=== PATIENT | female | born 1940 | race Caucasian/White ===

== ENCOUNTER 2016-10-25 11:07 | Day surgery (SDC) | payer OTHER ==
[~2016-10-25 11:07] MED LIST: ceFAZolin 2 GM/DEXTROSE 100 ML IV ONE
[2016-10-25] MEDS ORDERED: SODIUM BICARBONATE 10 MEQ/10 ML SYR IVP ONE (11:08)
[2016-10-25] MEDS ORDERED: LIDOCAINE 1% 30 ML SDV ONE (11:08)
[2016-10-25] MEDS ORDERED: BUPIVACAINE 0.5% 30 ML SDV ONE (11:08)
[2016-10-25] MEDS ORDERED: CEFAZOLIN 2 GM/DEXTROSE/100 ML BAG IV ONE (12:36)
[2016-10-25] MEDS ORDERED: LIDOCAINE 2% 5 ML SDV ONE (14:20)
[2016-10-25] MEDS ORDERED: fentaNYL 100 MCG/2 ML INJ ONE (14:20)
[2016-10-25] MEDS ORDERED: PROPOFOL 200 MG/20 ML VIAL ONE (14:20)
[2016-10-25] MEDS ORDERED: MIDAZOLAM 2 MG/2 ML VIAL ONE (14:22)
[2016-10-25] MEDS ORDERED: epHEDrine SULFATE 10 MG/ML SYR ONE (14:38)
[2016-10-25] MEDS ORDERED: DEXAMETHASONE 4 MG/ML VIAL ONE (14:39)
[2016-10-25] MEDS ORDERED: ONDANSETRON 4 MG/2 ML VIAL ONE (14:39)
--- NOTE | 2016-10-25 16:28 | DX ---
Portable Chest, 1610 History: Post port placement, pancreatic cancer Comparison: None Findings: A left chest wall implanted port is present with tip of its catheter in the right atrium. T here is no pneumothorax. Lungs are clear. There is no pleural fluid. Impression: Excellent port placement without pneumothorax. Results called to the PACU nurse at 1626 p.m.
--- NOTE | 2016-10-25 16:31 | GOP ---
[f rep st] OPERATIVE REPORT DATE OF OPERATION: 10/25/2016 SURGEON: Brad Walsh MD SENIOR COMPLIANCE ANALYST: None. ANESTHESIOLOGIST: Dr. Schuster PREOPERATIVE DIAGNOSIS: Pancreatic cancer. POSTOPERATIVE DIAGNOSIS: Pancreatic cancer. PROCEDURE PERFORMED: Left subclavian port with fluoroscopic guidance. FINDINGS: The patient was found to have good position of the catheter and good flow. DESCRIPTION OF PROCEDURE: Patient taken to the operating room, where she received a satisfactory gen eral laryngeal mask anesthesia by Dr. Schuster. She was placed in the supine position, and prepped and draped in the usual sterile fashion, then placed in Trendelenburg. Using 0.5% Marcaine local infiltration, a direct stick was made in the left subclavian vein. A guide wire was introduced, position was confirmed with fluoroscopy. Dilator was passed over that guidewire . Subcu pocket was made in the 2nd intercostal space and port tubing was passed from that pocket to the subclavian insertion site, trimmed to the appropriate length. Using fluoroscopic guidance, we int roduced the introducer sheath and dilator system into the right atrium. Good backflow was achieved. The catheter was flushed with heparin and saline. The port was secured to the fascia with 3-0 Vicry l, and the pocket was closed with 3-0 Vicryl for the subcu, 4-0 Prolene subcuticular stitch for the s kin. The entrance site was closed with a Prolene mattress suture. All layers were infiltrated with 0.5% Marcaine and the wounds were dressed. She tolerated the procedure well, taken to the recovery room in good condition. Copy requested to: [facility] /[id number]/MODL
--- NOTE | 2016-10-25 17:51 | DX ---
Intraoperative Fluoroscopy History: Port placement Fluoroscopy time = 27.1 seconds Fluoroscopy dose = 2.36 mGy mGy Findings : A single spot film demonstrates the tip of a port catheter at the cavoatrial junction Impression: Good intraoperative port catheter position.
== END 2016-10-25 17:30 | disposition home or self-care (01) ==
LOC: FSGY 11:07
PROVIDERS: ATTEND Surgery
DX: C25.9 Malignant neoplasm of pancreas, unspecified (principal); E11.9 Type 2 diabetes mellitus without complications; E03.9 Hypothyroidism, unspecified
CPT/HCPCS: C1788; J0690; J1100; J2250; J2405; J2704; J3010

== ENCOUNTER 2017-12-15 17:01 | Observation (INO) | payer OTHER ==
--- NOTE | 2017-12-15 17:08 | EDPHY ---
H & P Time Seen by Provider: 12/15/17 17:08 HPI/ROS: HPI CHIEF COMPLAINT: Abdominal pain, nausea, vomiting HISTORY OF PRESENT ILLNESS: Patient is a 77-year-old female she has a history of pancreatic cancer, she status post Whipple radiation and chemo she received a Whipple procedure in September [facility], she presents emergency room with nausea vomiting and abdominal pain. Her abdominal pain started around 2: 00 p.m.. She has had multiple episodes of nonbloody nonbilious vomit. Denies chest pain or shortness of breath. She vomited multiple times in this is what prompted her to come to the emergency room. She complains of pain in her mid abdomen. Denies diarrhea. Denies fever. Past Medical History: History of pancreatic cancer status post Whipple procedure, insulin-dependent diabetes Past Surgical History: Whipple procedure, left chest port Social History: Denies drugs alcohol tobacco. Family History: Noncontributory ROS REVIEW OF SYSTEMS: A comprehensive 10 point review of systems is otherwise negative aside from elements mentioned in the history of present illness. Exam Constitutional appears well nontoxic triage nursing summary reviewed, vital signs reviewed, awake/alert. Eyes normal conjunctivae and sclera, EOMI, PERRLA. HENT normal inspection, atraumatic, moist mucus membranes, no epistaxis, neck supple/ no meningismus, no raccoon eyes. Respiratory clear to auscultation bilaterally, normal breath sounds, no respiratory distress, no wheezing. Cardiovascular rate normal, regular rhythm, no murmur, no edema, distal pulses normal. Gastrointestinal mild tender to palpation mid abdomen, no rebound, no guarding , normal bowel sounds, no distension, no pulsatile mass. Genitourinary no CVA tenderness. Musculoskeletal no midline vertebral tenderness, full range of motion, no calf swelling, no tenderness of extremities, no meningismus, good pulses, neurovascularly intact. Skin pink, warm, & dry, no rash, skin atraumatic. Neurologic awake, alert and oriented x 3, AAOx3, moves all 4 extremities equally, motor intact, sensory intact, CN II-XII intact, normal cerebellar, normal vision, normal speech. Psychiatric normal mood/affect. Heme/Lymph/Immune no lymphadenopathy. Differential diagnosis includes but is not limited to and in no particular order : Bowel obstruction, appendicitis, gallbladder disease, diverticulitis, colitis , enteritis, perforated viscus, gastritis, GERD, esophagitis, urinary tract infection, pyelonephritis, kidney stones Medical Decision Making: Plan for this patient will access her port, IV fluid bolus 1 L normal saline, IV Zofran for nausea, 1 mg Dilaudid for pain control, check basic blood work, CT scan abdomen pelvis with IV contrast. Re-evaluation: CT scan abdomen pelvis with IV contrast called to me by Dr. Lora, shows enteritis. No evidence of acute bowel obstruction. There is air fluid seen in the small intestines. Possibly enteritis versus adynamic ileus. Did not feel that there is a small bowel obstruction no free air no free fluid. 191: I reviewed patient's blood work and CT with her. No evidence SBO however does show possibly adynamic ileus versus enteritis. Patient re-evaluated this time abdomen is soft she feels better after IV Phenergan IV Dilaudid. Blood work has been reviewed initially she had a anion gap however this is closed with 2 L of fluid. Glucose is trended down to 250. Patient be admitted for nausea vomiting and abdominal pain. Additionally hyperglycemia. She has agreed for admission and would prefer this. Spoke with the hospitalist service Source: Patient - Medical/Surgical History Hx Asthma: No Hx Chronic Respiratory Disease: No Hx Diabetes: Yes Hx Cardiac Disease: No Hx Renal Disease: No Hx Cirrhosis: No Hx Alcoholism: No Hx HIV/AIDS: No Hx Splenectomy or Spleen Trauma: No Other PMH: HYPOTHYROID/PREDIABETES - Social History Smoking Status: Never smoked Constitutional: Initial Vital Signs Temperature (C) 36.9 C 12/15/17 17:05 Heart Rate 79 12/15/17 17:05 Respiratory Rate 20 12/15/17 17:05 Blood Pressure 164/82 H 12/15/17 17:05 O2 Sat (%) 99 12/15/17 17:05 O2 Delivery Mode Room Air Allergies/Adverse Reactions: No Known Allergies Allergy (Verified 12/15/17 17:14) Home Medications: Medication Instructions Recorded Insulin Aspart [Novolog Flexpen] 0 unit SQ TIDMEAL 10/24/16 Herbals/Supplements -Info Only 1 ea PO DAILY 12/15/17 Insulin Detemir [Levemir Flextouch] 10 units SQ HS 12/15/17 Lipase 24,000/Amylase/Protease 1 cap PO TIDMEAL 12/15/17 [Creon 24 (*)] Multivitamins [Multivitamin (*)] 1 each PO DAILY 12/15/17 SIMVASTATIN 10 mg PO HS 12/15/17 Spironolactone [Aldactone 50 MG 50 mg PO BID 12/15/17 (RX)] Thyroid [[place] Thyroid 60 MG (*)] 90 mg PO DAILY@06 12/15/17 Medical Decision Making - Data Points Laboratory Results: Laboratory Results 12/15/17 17:20 12/15/17 18:40 Medications Given: Lipase/Protease/Amylase (Creon) 1 cap PO TIDMEAL [facility] Stop: 06/14/18 07:59 Last Admin: 12/16/17 12:46 Dose: 1 cap Miscellaneous Medication (Insulin Aspart [Novolog Flexpen]) 2 - 8 unit SQ TIDMEAL [facility] Stop: 06/14/18 07:59 Last Admin: 12/16/17 12:38 Dose: Not Given Miscellaneous Medication (Insulin Detemir [Levemir Flextouch]) 10 units SQ [facility] Stop: 06/14/18 00:59 Last Admin: 12/16/17 00:45 Dose: 10 units Miscellaneous Medication (Non-Formulary) 0 ea PO DAILY@06 [facility] Stop: 06/14/18 05:59 Last Admin: 12/16/17 06:11 Dose: 90 mg Discontinued Medications Hydromorphone HCl (Dilaudid) 1 mg IVP EDNOW ONE Stop: 12/15/17 17:15 Last Admin: 12/15/17 17:23 Dose: 1 mg Hydromorphone HCl (Dilaudid) 0.5 mg IVP EDNOW ONE Stop: 12/15/17 18:58 Last Admin: 12/15/17 19:11 Dose: 0.5 mg Sodium Chloride (Ns) 1,000 mls @ 0 mls/hr IV EDNOW ONE; Wide Open PRN Reason: Protocol Stop: 12/15/17 17:11 Last Admin: 12/15/17 17:23 Dose: 1,000 mls Sodium Chloride (Ns) 1,000 mls @ 0 mls/hr IV ONCE ONE PRN Reason: Wide Open Stop: 12/15/17 17:41 Last Admin: 12/15/17 17:42 Dose: 1,000 mls Sodium Chloride (Ns) 1,000 mls @ 0 mls/hr IV ONCE ONE PRN Reason: Wide Open Stop: 12/15/17 19:16 Last Admin: 12/15/17 19:21 Dose: 1,000 mls Sodium Chloride (Ns) 1,000 mls @ 0 mls/hr IV ONCE ONE PRN Reason: Wide Open Stop: 12/15/17 19:16 Last Admin: 12/15/17 19:16 Dose: Not Given Sodium Chloride (Ns) 1,000 mls @ 100 mls/hr IV CONT JOHN Stop: 12/16/17 07:59 Last Admin: 12/15/17 23:10 Dose: 1,000 mls Multivitamins (Tab-A-Kalie) 1 each PO DAILY JOHN Stop: 06/14/18 08:59 Last Admin: 12/16/17 08:28 Dose: 1 each Ondansetron HCl (Zofran) 4 mg IVP EDNOW ONE Stop: 12/15/17 17:15 Last Admin: 12/15/17 17:23 Dose: 4 mg Ondansetron HCl (Zofran) 4 mg IVP EDNOW ONE Stop: 12/15/17 18:18 Last Admin: 12/15/17 18:20 Dose: 4 mg Promethazine HCl (Phenergan) 6.25 mg IVP ONCE ONE Stop: 12/15/17 18:51 Last Admin: 12/15/17 18:52 Dose: 6.25 mg Departure - Departure Disposition: [facility] Clinical Impression: Vomiting Qualifiers: Vomiting type: unspecified Vomiting Intractability: non-intractable Nausea presence: with nausea Qualified Code(s): R11.2 - Nausea with vomiting, unspecified Abdominal pain Qualifiers: Abdominal location: unspecified location Qualified Code(s): R10.9 - Unspecified abdominal pain Condition: Fair
[2017-12-15] MEDS ORDERED: NS 1,000 ML IV ONE ×4 (17:10→19:15)
[2017-12-15] MEDS ORDERED: HYDROmorphONE/DILAUDID 2 MG/ML INJ IVP ONE ×2 (17:14→18:57)
[2017-12-15] MEDS ORDERED: ONDANSETRON 4 MG/2 ML VIAL IVP ONE ×2 (17:14→18:17)
[2017-12-15 17:31] LABS: PLATELET COUNT 211 10^3/uL (150-400)
[2017-12-15 17:42] LABS: INR 1.06 (0.83-1.16)
[2017-12-15] MEDS ORDERED: IOPAMIDOL (ISOVUE-300) 100 ML BTL ONE (17:50)
[2017-12-15] MEDS ORDERED: PROMETHAZINE HCL 25 MG/ML INJ IVP ONE (18:50)
[2017-12-15] MEDS ORDERED: HYDROmorphONE/DILAUDID 2 MG/ML INJ ONE (18:51)
[2017-12-15] MEDS ORDERED: PROMETHAZINE HCL 25 MG/ML INJ ONE (18:51)
[2017-12-15] MEDS ORDERED: ACETAMINOPHEN 325 MG TAB PO PRN (21:59)
[2017-12-15] MEDS ORDERED: ONDANSETRON DISINTEGRATING 4 MG TAB PO PRN (21:59)
[2017-12-15] MEDS ORDERED: ONDANSETRON 4 MG/2 ML VIAL IVP PRN (21:59)
[2017-12-15] MEDS ORDERED: NS 1,000 ML IV SCH (22:00)
[2017-12-15] MEDS ORDERED: PROMETHAZINE HCL 25 MG/ML INJ IVP PRN (22:01)
--- NOTE | 2017-12-15 22:39 | GHP ---
[f rep st] HISTORY AND PHYSICAL DATE OF ADMISSION: 12/15/2017 The patient is a pleasant 77-year-old female with a history of pancreatic cancer , status post Whipple, chemo, and XRT. This all took place between August of 2016 and the summer. She has done well since with a negative followup CAT scan. She presents with nausea and vomiting. She had been feeling well until she was caring for her 2-1/2-year-old grandchild. This is her first contact with the child in a couple of weeks. She developed some nausea and then some vomiting. She had multiple episodes of vomiting with subsequent abdominal pain; nonbloody, nonbilious vomiting. No diarrhea. No chest pain. No shortness of breath. She returned to the emergency department. No fever. There is no clear culprit, ingestion of leftovers or other suspect food. Her has not been sick. PAST MEDICAL HISTORY: 1. Insulin-dependent diabetes. 2. Pancreatic cancer, status post Whipple. left chest port. SOCIAL HISTORY: No drugs. No alcohol. No tobacco. She lives in [place]. She is originally from [place]. FAMILY HISTORY: Reviewed and unremarkable. Parents . PHYSICAL EXAMINATION: Temp 36.4, blood pressure 132/72, pulse 89, breathing 16 times a minute, 94% on room air. GENERAL: No acute distress. Sclerae anicteric. Oropharynx clear. Mucous membranes moist. NECK: Supple, without lymphadenopathy or JVD. LUNGS: Clear to auscultation bilaterally. HEART: S1 , S2. ABDOMEN: Soft. Bowel sounds are present but hypoactive. There is no rebound or guarding lower. LOWER EXTREMITIES: No edema. Calves nontender. SKIN: Without rash. NEUROLOGIC: Nonfocal. LABORATORY DATA: White count is 10.5, hematocrit 42, platelets are 211,000. INR is 1. Venous lactate was 3.6, now 1.5. Sodium 137, potassium 3.8, chloride 104, bicarb 21, BUN 13, creatinine 0.6, glucose 257. She initially had an anion gap acidosis that resolved with IV fluids. Her beta- hydroxybutyrate is 1.2, which is elevated. UA is unremarkable. Abdominal CAT scan reviewed, interpreted by me, shows adynamic ileus versus small bowel enteritis. There is no evidence of mass. There is stigmata of a prior Whipple. I have discussed the case with Dr. Rusty Mayfield. ASSESSMENT AND PLAN: 77-year-old female with previous Whipple, with likely viral gastroenteritis versus ileus. 1. Viral gastroenteritis. Supportive care. IV fluids. IV antiemetics. She does not need pain medicine. She will be put on a clear liquid diet. 2. History of pancreatic cancer with Whipple. The patient is clinically stable with no evidence of recurrence. We will follow. 3. Prophylaxis. Pharmacologic prophylaxis indicated if in the hospital longer than 24 hours. At this point in time, I suspect the patient will be leaving tomorrow. 4. Type 1 diabetes. The patient had anion gap acidosis I suspect with starvation ketosis. She has not had a decompensated diabetic stay. We will continue her detemir insulin with scheduled lispro at her discretion. 5. DISPOSITION: Observation status. /[id number]/MODL MTDD
[2017-12-16] MEDS ORDERED: THYROID 90 MG PO SCH (06:00)
[2017-12-16] MEDS: LIPASE 24,000/AMYLASE/PROTEASE (CREON) 1 CAP PO SCH ×2 (08:25→12:46)
[2017-12-16] MEDS: MULTIVITAMINS 1 EACH TAB PO SCH ×3 (08:25→08:28)
[2017-12-16] MEDS: Insulin Aspart [Novolog Flexpen] SQ SCH ×2 (08:36→12:38)
--- NOTE | 2017-12-16 09:01 | ASMTCMCOM ---
CM Note CM Note Notes: Pt. is a 77-year-old woman admitted with abdominal pain and nausea and vomiting. Hx. of pancreatic cancer, s/p Whipple, chemo, XRT. Pt. w/ insulin dependent diabetes. Likely viral gastritis. Pt. lives w/ her Ed. No PT/OT ordered. Likely to d/c indepenently when ready. CM available should d/c POC change. Date Signed: 12/16/2017 09:00 AM Electronically Signed By:Berkley Loredo LCSW
[2017-12-16 11:59] VITALS: BP 109/60
--- NOTE | 2017-12-16 15:15 | PDDCSUM ---
Discharge Summary Discharge Summary: DISCHARGE SUMMARY FOLLOW-UP ITEMS: Reassess for any recurrence of symptoms DATE OF ADMISSION: 12/15/2017 DATE OF DISCHARGE: 12/16/2017 DISCHARGE DIAGNOSES: 1. Suspected acute viral gastroenteritis 2. Transaminitis 3. Diabetes mellitus type 2 with hyperglycemia, uncontrolled 4. Acute metabolic acidosis CONSULTATIONS: None PROCEDURES / IMAGING: CT of the abdomen demonstrating steatosis, nephrolithiasis, possible adynamic ileus CHIEF COMPLAINT: Acute abdominal pain nausea vomiting SUBJECTIVE: Patient is feeling well at time discharge, she is tolerating an oral diet of solids and liquids PHYSICAL EXAM ON DISCHARGE: Systolic blood pressure 121/40, heart rate 90, afebrile overnight, satting 94% on room air, alert awake oriented x3, no apparent distress, abdomen is soft nontender nondistended bowel sounds are present, heart rhythm is a in route removed regular LABS ON DISCHARGE: Lactic 1.5, beta hydroxybutyrate 1.2, glucose 255 HOSPITAL COURSE BY PROBLEM: 1. Suspected viral gastroenteritis. Acute, most likely viral precipitant given the short duration of symptoms in self-limited nature, symptoms have completely resolved with supportive care and patient will be discharged home with some as needed Zofran. 2. Acute metabolic acidosis. Secondary to hypoperfusion in the setting of hypovolemia, lactic cleared with IV fluids. 3. Diabetes mellitus type 2 with hyperglycemia, uncontrolled. Patient with elevated glucose levels between 230 and 350, received insulin sliding scale patient is not currently on oral agents and is diet managed, recommend following up with PCP to readdressed. 4. Transaminitis. Secondary to hepatic steatosis on imaging, recommend following as an outpatient. DISCHARGE MEDICATIONS: Please see official discharge medication reconciliation sheet in chart , continue home medications with the addition of Zofran 4 mg as needed every 4 hr. DISCHARGE INSTRUCTIONS: Please follow up with primary care provider this week as scheduled.
--- NOTE | 2017-12-16 15:56 | ASDISCHSUM ---
Discharge Information Plan Status:Home with No Needs Medically Cleared to Leave: Discharge Date: CM D/C Disposition:Home, Routine, Self-Care ADT D/C Disposition:Home, Routine, Self-Care Projected Discharge Date: Transportation at D/C: Discharge Delay Reason: Follow-Up Date: Discharge Slot: Final Diagnosis: Placement Information Patient Contact Information Contact Name:JEANIE Relationship: Address:[address] [place] [address] City:[place] Alternate Phone: State/Zip Code:[place] [address] Email: Financial Information Financial Class:Medicare Advantage Plans Primary Plan Desc:[employer] GOLD MEDICARE Primary Plan Number:[id number] Secondary Plan Desc: Secondary Plan Number: Assessment Information BC CM Progress Note CM Note CM Note Notes: Pt. is a 77-year-old woman admitted with abdominal pain and nausea and vomiting. Hx. of pancreatic cancer, s/p Whipple, chemo, XRT. Pt. w/ insulin dependent diabetes. Likely viral gastritis. Pt. lives w/ her Ed. No PT/OT ordered. Likely to d/c indepenently when ready. CM available should d/c POC change. Date Signed: 12/16/2017 09:00 AM Electronically Signed By:Berkley Loredo LCSW Intervention Information
[2017-12-17] MEDS ORDERED: MULTIVITAMINS 1 EACH TAB PO SCH (09:00)
== END 2017-12-16 16:49 | disposition home or self-care (01) ==
LOC: F1N 20:07
PROVIDERS: ADMIT Internal Medicine; ATTEND Internal Medicine
DX: R11.2 Nausea with vomiting, unspecified (principal); R10.84 Generalized abdominal pain; R74.0 Nonspecific elevation of levels of transaminase and lactic acid dehydrogenase [LDH]; E11.65 Type 2 diabetes mellitus with hyperglycemia; E87.2 Acidosis; K76.0 Fatty (change of) liver, not elsewhere classified; Z85.07 Personal history of malignant neoplasm of pancreas
CPT/HCPCS: 74177; 96361; 96374; 96375; 96376; 99285; G0378; J1170; J1642; J2405; J2550; Q9967

== ENCOUNTER 2018-05-15 09:45 | Day surgery (SDC) | payer OTHER ==
[2018-05-15] MEDS ORDERED: MEPERIDINE 25 MG/ML SYR IVP PRN (10:06)
[2018-05-15] MEDS ORDERED: FLUMAZENIL 0.5 MG/5 ML MDV IVP PRN (10:06)
[2018-05-15] MEDS ORDERED: fentaNYL 100 MCG/2 ML INJ IVP PRN (10:06)
[2018-05-15] MEDS ORDERED: MIDAZOLAM 2 MG/2 ML VIAL IVP PRN (10:06)
[2018-05-15] MEDS ORDERED: NALOXONE HCL 0.4 MG/ML INJ IVP PRN (10:06)
[2018-05-15] MEDS ORDERED: NS 1,000 ML IV SCH (10:15)
[2018-05-15 11:03] LABS: INR 1.04 (0.83-1.16); PROTIME(PATIENT) 13.8 SEC (12.0-15.0)
[2018-05-15] MEDS ORDERED: IOPAMIDOL (ISOVUE-300) 100 ML BTL ONE (12:17)
--- NOTE | 2018-05-15 12:44 | PDPROPOC ---
Sedation Plan of Care Sedation Plan of Care: vital signs stable, mental status noted, patient educated of risks, benefits, alternatives, patient can tolerate sedation ASA Classification: ASA 2 Planned drugs: fentanyl, midazolam Mallampati Score: Class 2 Mallampati Reference Image: Patient passed 3-3-2 rule?: Yes
--- NOTE | 2018-05-15 12:44 | PDRADPRE ---
Radiology History & Physical Indication for procedure: other (Pancreatic cancer - CT guided LN biopsy) Home medications: Insulin Aspart [Novolog Flexpen] 0 unit SQ TIDMEAL 10/24/16 [Last Taken 05/14/18 ] Herbals/Supplements -Info Only 1 ea PO DAILY 12/15/17 [Last Taken 05/14/18] Insulin Detemir [Levemir Flextouch] 11 units SQ HS 12/15/17 [Last Taken 05/14/18 ] Lipase 24,000/Amylase/Protease [Creon 24 (*)] 1 cap PO TIDMEAL 12/15/17 [Last Taken 05/14/18] Multivitamins [Multivitamin (*)] 1 each PO DAILY 12/15/17 [Last Taken 05/14/18] SIMVASTATIN 10 mg PO HS 12/15/17 [Last Taken 05/14/18] Spironolactone [Aldactone] 50 mg PO BID 12/15/17 [Last Taken 05/14/18] Thyroid [[facility] Thyroid 60 MG (*)] 90 mg PO DAILY@06 12/15/17 [Last Taken ] BIOTIN 05/14/18 [Last Taken 05/14/18] Vitamin D3 2 tab PO DAILY 05/14/18 [Last Taken 05/14/18] Allergies/Adverse Reactions: No Known Allergies Allergy (Verified 05/14/18 11:00) Mental status: A&Ox3 Heart exam: regular rate and rhythm Lungs exam: clear to auscultation Mallampati Score: Class 2
[2018-05-15] MEDS ORDERED: ONDANSETRON 4 MG/2 ML VIAL ONE ×2 (13:20→14:23)
[2018-05-15] MEDS: ONDANSETRON 4 MG/2 ML VIAL IVP PRN ×2 (13:22→14:24)
[2018-05-15] MEDS ORDERED: oxyCODONE IR 5 MG TAB PO PRN (14:18)
--- NOTE | 2018-05-15 14:22 | PDRADPN ---
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 Dominant periaortic LN that had increased FDG activity on PET scan was sampled, 3 18 ga core specimens sent. Inf/Abcess present in the surg proc area at time of surgery?: No EBL: Minimal
[2018-05-15 16:28] VITALS: BP 111/69
== END 2018-05-15 16:29 | disposition home or self-care (01) ==
LOC: FIMAGING 09:45
PROVIDERS: ATTEND Internal Medicine Hematology & Oncology
PROC: 07BD3ZX Excision of Aortic Lymphatic, Percutaneous Approach, Diagnostic (ICD-10-PCS; principal; 2018-05-15 14:22)
DX: C77.2 Secondary and unspecified malignant neoplasm of intra-abdominal lymph nodes (principal); C25.9 Malignant neoplasm of pancreas, unspecified
CPT/HCPCS: 82565-PO; J1642; J2250; J2310; J2405; J3010; Q9967

== ENCOUNTER 2018-06-07 19:27 | Inpatient (IN) | payer OTHER ==
[2018-06-07] MEDS: NS 1,000 ML IV ONE ×2 (19:30→20:15)
[2018-06-07] MEDS ORDERED: NS 1,000 ML IV ONE (19:38)
--- NOTE | 2018-06-07 19:38 | EDPHY ---
H & P Source: Patient, Family (), EMS Exam Limitations: No limitations - Medical/Surgical History Hx Asthma: No Hx Chronic Respiratory Disease: No Hx Diabetes: Yes Hx Cardiac Disease: No Hx Renal Disease: No Hx Cirrhosis: No Hx Alcoholism: No Hx HIV/AIDS: No Hx Splenectomy or Spleen Trauma: No Other PMH: HYPOTHYROID/PREDIABETES - Social History Smoking Status: Never smoked Time Seen by Provider: 06/07/18 19:36 HPI/ROS: HPI: This is a 77-year-old female who presents with Chief Complaint: Fatigue, decreased appetite Location: Body Quality: Fatigue and decreased appetite Duration: 1 week Signs and Symptoms: no fever, no nausea, no vomiting, no hematemesis, no blood in stool, no abdominal bloating, no diarrhea, no back pain, no urinary symptoms , no indigestion, no chest pain, no shortness of breath Timing: Acute Severity: Moderate Context: Patient has a history of pancreatic cancer recently started chemotherapy last week, with the 2nd round yesterday, presents via EMS with complaints of decreased appetite, generalized body shakiness and fatigue that slowly worsened over the last week. Patient did receive her influenza vaccine yesterday. She denies any fever, nausea, vomiting, abdominal pain, abdominal bloating, diarrhea. She denies actually fainting. She has no chest pain, shortness of breath. Oncologist is Dr. Amaro. Patient reports that she feels warm. She had an MRI in May that showed a subtle abnormality indicating recurrence of pancreatic cancer. Reports increased thirst. Patient complains of a slight nonproductive cough but denies any shortness of breath or wheezing. Modifying Factors: None Comment: ROS: A comprehensive 10 system review of systems is otherwise negative aside from elements mentioned in the history of present illness. MEDICAL/SURGICAL/SOCIAL HISTORY: Medical history: HYPOTHYROID/PREDIABETES Surgical history: Whipple procedure Social history: , retired, nonsmoker pain Family history noncontributory. CONSTITUTIONAL: Chronically ill-appearing, nontoxic, elderly white female, talkative in polite, awake and alert, no obvious distress HEENT: Atraumatic and normocephalic, PERRL, EOMI. Nares patent; no rhinorrhea; no nasal mucosal edema. Tympanic membranes clear. Oropharynx clear, no exudate and dry oral mucosa. Airway patent. No lymphadenopathy. No meningismus. Cardiovascular: Normal S1/S2, mild tachycardia, regular rhythm, without murmur rub or gallop. PULMONARY/CHEST: Symmetrical and nontender. Clear to auscultation bilaterally. Good air movement. No accessory muscle usage. ABDOMEN: Soft, nondistended, nontender, no rebound, no guarding, no peritoneal signs, no masses or organomegaly. No CVAT. EXTREMITIES: 2/2 pulses, strength 5/5, no deformities, no clubbing, no cyanosis or edema. NEUROLOGICAL: no focal neuro deficits. GCS 15. SKIN: Warm and dry, pallor, no erythema. no rash. Good capillary refill. (Za Costa) Constitutional: Initial Vital Signs Temperature (C) 38.1 C 06/07/18 19:42 Heart Rate 107 H 06/07/18 19:42 Respiratory Rate 18 06/07/18 19:42 Blood Pressure 110/61 06/07/18 19:42 O2 Sat (%) 95 06/07/18 19:42 O2 Delivery Mode Room Air Allergies/Adverse Reactions: No Known Allergies Allergy (Verified 05/14/18 11:00) Home Medications: Medication Instructions Recorded Insulin Aspart [Novolog Flexpen] 0 unit SQ TIDMEAL 10/24/16 Herbals/Supplements -Info Only 1 ea PO DAILY 12/15/17 Insulin Detemir [Levemir Flextouch] 11 units SQ HS 12/15/17 Lipase 24,000/Amylase/Protease 1 cap PO TIDMEAL 12/15/17 [Creon 24 (*)] Multivitamins [Multivitamin (*)] 1 each PO DAILY 12/15/17 SIMVASTATIN 10 mg PO HS 12/15/17 Spironolactone [Aldactone] 50 mg PO BID 12/15/17 Thyroid [[place] Thyroid 60 MG (*)] 90 mg PO DAILY@06 12/15/17 Acetaminophen [Tylenol 325mg (*)] 650 mg PO Q4HRS PRN tab 12/16/17 BIOTIN 05/14/18 Vitamin D3 2 tab PO DAILY 05/14/18 Dexamethasone [Decadron 4 MG (*)] 4 mg PO 06/07/18 Medical Decision Making - Diagnostics Imaging Results: Imaging Impressions Chest X-Ray 06/07/18 20:16 Impression: Clear lungs. No acute process. ED Course/Re-evaluation: Vital signs reviewed and show mild tachycardia upon arrival. Laboratory studies, urinalysis, chest x-ray, blood culture and EKG ordered No signs of syncope Given 1 L normal saline EKG interpreted by attending shows unchanged right bundle-branch block, sinus tachycardia 2014: Labs reviewed glucose 131, sodium 128, BUN 25, creatinine 0.8, WBC 2.19. Chart review shows that on 06/06 WBCs 3.77 platelets 106 No lactic acidosis to indicate sepsis. Chest x-ray my read shows no opacity, no effusion, no pneumothorax. 2042: ED decision to consult for observation admission. Spoke with hospitalist , Dr. Cates, who kindly agrees to admit patient and provide further care. Urine results pending at time of consult. This patient was seen under the supervision of my secondary supervising physician. I evaluated care for this patient independently. Discussed this patient with Dr. Brambila. (Za Costa) Differential Diagnosis: Weakness including but not limited to electrolyte abnormality, depression, anxiety, CVA, spinal cord abnormality, and infectious causes. (Za Costa) Other Provider: Independent physician evaluation I evaluated and participated in the management of the patient. I also evaluated the patient independently. My co-signature indicates that I have reviewed this chart and I agree with the findings and plan of care as documented. My personal H&P findings include: Patient presents to the ED with fatigue and weakness for the past day. She has a history of recurrent pancreatic cancer. The patient does report that she is taking spironolactone. She denies any complaints of fever. She does report a dry nonproductive cough. Physical exam General Appearance: Alert, no distress Eyes: Pupils equal and round no pallor or injection ENT, Mouth: Dry mucous membranes Respiratory: There are no retractions, lungs are clear to auscultation, port to chest wall Cardiovascular: Regular rate and rhythm Gastrointestinal: Abdomen is soft and nontender, no masses, bowel sounds normal Neurological: 5/5 strength all 4 extremities Skin: Warm and dry, no rashes Musculoskeletal: Neck is supple nontender Extremities: symmetrical, full range of motion Psychiatric: Patient is oriented X 3, there is no agitation ED course: The patient had an IV established. She received a L normal saline. The patient is noted to be acutely hyponatremic. The patient is afebrile in the emergency department. Her chest x-ray demonstrates no evidence of an acute pneumonia. I find her abdominal examination to be benign. Her EKG demonstrates no evidence of a significant arrhythmia. The patient will be admitted to the hospitalist service in the setting of her presyncope, hyponatremia and clinical dehydration. (Clarke Brambila) - Data Points Laboratory Results: Laboratory Results 06/07/18 19:20 06/07/18 19:20 06/07/18 06/07/18 06/07/18 20:15 19:20 19:20 WBC 2.19 10^3/uL L 10^3/uL (3.80-9.50) RBC 4.36 10^6/uL 10^6/uL (4.18-5.33) Hgb 12.5 g/dL L g/dL (12.6-16.3) Hct 36.0 % L % (38.0-47.0) MCV 82.6 fL fL (81.5-99.8) MCH 28.7 pg pg (27.9-34.1) MCHC 34.7 g/dL g/dL (32.4-36.7) RDW 13.6 % % (11.5-15.2) Plt Count 75 10^3/uL L 10^3/uL (150-400) MPV 10.5 fL fL (8.7-11.7) Neut % (Auto) 90.8 % H % (39.3-74.2) Lymph % (Auto) 7.3 % L % (15.0-45.0) [place] % (Auto) 0.9 % L % (4.5-13.0) Eos % (Auto) 0.5 % L % (0.6-7.6) Baso % (Auto) 0.0 % L % (0.3-1.7) Nucleat RBC Rel Count 0.0 % % (0.0-0.2) Absolute Neuts (auto) 1.99 10^3/uL 10^3/uL (1.70-6.50) Absolute Lymphs (auto) 0.16 10^3/uL L 10^3/uL (1.00-3.00) Absolute Monos (auto) 0.02 10^3/uL L 10^3/uL (0.30-0.80) Absolute Eos (auto) 0.01 10^3/uL L 10^3/uL (0.03-0.40) Absolute Basos (auto) 0.00 10^3/uL L 10^3/uL (0.02-0.10) Absolute Nucleated RBC 0.00 10^3/uL 10^3/uL (0-0.01) Immature Gran % 0.5 % % (0.0-1.1) Immature Gran # 0.01 10^3/uL 10^3/uL (0.00-0.10) Platelet Estimate Not Reported VBG Lactic Acid 1.1 mmol/L mmol/L (0.7-2.1) Sodium 128 mEq/L L mEq/L (135-145) Potassium 3.6 mEq/L mEq/L (3.3-5.0) Chloride 93 mEq/L L mEq/L (97-110) Carbon Dioxide 23 mEq/l mEq/l (22-31) Anion Gap 12 mEq/L mEq/L (8-16) BUN 25 mg/dL H mg/dL (7-23) Creatinine 0.8 mg/dL mg/dL (0.6-1.0) Estimated GFR > 60 Glucose 131 mg/dL H mg/dL (70-100) Calcium 8.8 mg/dL mg/dL (8.5-10.4) Total Bilirubin 0.9 mg/dL mg/dL (0.1-1.4) Conjugated Bilirubin 0.3 mg/dL mg/dL (0.0-0.5) Unconjugated Bilirubin 0.6 mg/dL mg/dL (0.0-1.1) AST 59 IU/L H IU/L (14-46) ALT 62 IU/L H IU/L (9-52) Alkaline Phosphatase 81 IU/L IU/L (38-126) Total Protein 6.4 g/dL g/dL (6.3-8.2) Albumin 3.4 g/dL L g/dL (3.5-5.0) Medications Given: Discontinued Medications Sodium Chloride (Ns) 1,000 mls @ 0 mls/hr IV ONCE ONE; Wide Open PRN Reason: Protocol Stop: 06/07/18 19:39 Last Admin: 06/07/18 19:35 Dose: 1,000 mls Sodium Chloride (Ns) 1,000 mls @ 0 mls/hr IV EDNOW ONE; Wide Open PRN Reason: Protocol Stop: 06/07/18 20:16 Last Admin: 06/07/18 20:15 Dose: Not Given Departure - Departure Disposition: [facility] Inpatient Acute Clinical Impression: Hyponatremia, Thrombocytopenia, Chemotherapy-induced thrombocytopenia Pancreatic cancer Qualifiers: Pancreatic malignancy location: unspecified Qualified Code(s): C25.9 - Malignant neoplasm of pancreas, unspecified Leukopenia Qualifiers: Leukopenia type: unspecified Qualified Code(s): D72.819 - Decreased white blood cell count, unspecified Condition: Fair
[2018-06-07 19:48] LABS: PLATELET COUNT 75 10^3/uL (150-400)
--- NOTE | 2018-06-07 19:55 | CPEKG ---
Test Reason : OPEN Blood Pressure : / mmHG Vent. Rate : 097 BPM Atrial Rate : 097 BPM P-R Int : 138 ms QRS Dur : 128 ms QT Int : 349 ms P-R-T Axes : 040 -31 029 degrees QTc Int : 444 ms Sinus rhythm Right bundle branch block Confirmed by Clarke Brambila ([id number]) on 06/07/2018 7:54:51 PM Referred By: Confirmed By:Clarke Brambila
[2018-06-07] MEDS ORDERED: ONDANSETRON DISINTEGRATING 4 MG TAB PO PRN (21:12)
[2018-06-07] MEDS ORDERED: oxyCODONE IR 5 MG TAB PO PRN (21:12)
[2018-06-07] MEDS ORDERED: HYDROmorphONE/DILAUDID 1 MG/ML INJ IVP PRN (21:12)
[2018-06-07] MEDS ORDERED: ONDANSETRON 4 MG/2 ML VIAL IVP PRN (21:12)
--- NOTE | 2018-06-07 21:37 | PDGENHP ---
History and Physical - Chief Complaint fever, weakness - History of Present Illness 77 yo with h/o pancreatic cancer, s/p whipple in 07/2016 in remission >1 yr, developed recurrence with metastatic disease to the lymphatic system and recently restarted on chemotherapy presents to ED with fevers and weakness. She is followed by Dr. Amaro at [facility]. She received her 2nd round of chemotherapy yesterday with Gemcitabine and Abraxane. She felt very weak yesterday and noted a fever of 101. Today, her weakness was worse and fever recurred, up to 103. This was associated with chills and rigors. She denies CP , SOB, cough, abdominal pain, nausea or vomiting. She does endorse urinary frequency and urgency. Her notes marked urgency symptoms. She has a port, but denies any redness, drainage or tenderness. In the ED, she was found to be hyponatremic and pancytopenic. Blood cultures were drawn. She received 1 L NS and she is admitted to the hospital for further management. History Information - Allergies/Home Medication List Allergies/Adverse Reactions: No Known Allergies Allergy (Verified 06/07/18 21:19) Home Medications: Insulin Aspart [Novolog Flexpen] 0 unit SQ TIDMEAL 10/24/16 [Last Taken 06/07/18 ] Herbals/Supplements -Info Only 1 ea PO DAILY 12/15/17 [Last Taken 05/14/18] Insulin Detemir [Levemir Flextouch] 11 units SQ HS 12/15/17 [Last Taken 06/06/18 ] Lipase 24,000/Amylase/Protease [Creon 24 (*)] 1 cap PO TIDMEAL 12/15/17 [Last Taken 06/07/18] Multivitamins [Multivitamin (*)] 1 each PO DAILY 12/15/17 [Last Taken 06/07/18] SIMVASTATIN 10 mg PO HS 12/15/17 [Last Taken 06/06/18] Spironolactone [Aldactone] 50 mg PO BID 12/15/17 [Last Taken 06/07/18] Thyroid [[place] Thyroid 60 MG (*)] 90 mg PO DAILY@06 12/15/17 [Last Taken ] Acetaminophen [Tylenol ES 500 mg (*)] 1,000 mg PO TID PRN 06/07/18 [Last Taken 06/07/18] Cholecalciferol Vit D3 [Vitamin D3 (*)] 4,000 units PO DAILY 06/07/18 [Last Taken 06/07/18] Dexamethasone [Decadron 4 MG (*)] 10 mg PO BID 06/07/18 [Last Taken 06/07/18] I have personally reviewed and updated: family history, medical history, social history, surgical history - Past Medical History diabetes type 2, hypertension, hyperlipidemia Additional medical history: Pancreatic cancer with lymphatic mets, s/p whipple - Surgical History Additional surgical history: Whipple 07/2016 - Family History Positive for: non-pertinent - Social History Smoking Status: Never smoked Alcohol Use: None Drug Use: None Additional social history: Lives independently with her who is present at the bedside Review of Systems Review of Systems: ROS: 10pt was reviewed & negative except for what was stated in HPI & below Physical Exam Physical Exam: Temp Pulse Resp BP Pulse Ox 37.9 C 104 H 18 87/58 L 95 06/07/18 20:45 06/07/18 20:45 06/07/18 20:45 06/07/18 20:45 06/07/18 20:45 Constitutional: no apparent distress Eyes: PERRL Ears, Nose, Mouth, Throat: moist mucous membranes Cardiovascular: regular rate and rhythym, no murmur, rub, or gallop Respiratory: no respiratory distress, clear to auscultation Gastrointestinal: normoactive bowel sounds, other (soft, nd, mild TTP LLQ without r/r/g, +BS) Skin: warm Musculoskeletal: full muscle strength Neurologic: AAOx3 Psychiatric: interacting appropriately Lab Data & Imaging Review 06/08/18 06:00 06/08/18 06:00 WBC 2.19 10^3/uL (3.80-9.50) L 06/07/18 19:20 RBC 4.36 10^6/uL (4.18-5.33) 06/07/18 19:20 Hgb 12.5 g/dL (12.6-16.3) L 06/07/18 19:20 Hct 36.0 % (38.0-47.0) L 06/07/18 19:20 MCV 82.6 fL (81.5-99.8) 06/07/18 19:20 MCH 28.7 pg (27.9-34.1) 06/07/18 19:20 MCHC 34.7 g/dL (32.4-36.7) 06/07/18 19:20 RDW 13.6 % (11.5-15.2) 06/07/18 19:20 Plt Count 75 10^3/uL (150-400) L 06/07/18 19:20 MPV 10.5 fL (8.7-11.7) 06/07/18 19:20 Neut % (Auto) 90.8 % (39.3-74.2) H 06/07/18 19:20 Lymph % (Auto) 7.3 % (15.0-45.0) L 06/07/18 19:20 [place] % (Auto) 0.9 % (4.5-13.0) L 06/07/18 19:20 Eos % (Auto) 0.5 % (0.6-7.6) L 06/07/18 19:20 Baso % (Auto) 0.0 % (0.3-1.7) L 06/07/18 19:20 Nucleat RBC Rel Count 0.0 % (0.0-0.2) 06/07/18 19:20 Absolute Neuts (auto) 1.99 10^3/uL (1.70-6.50) 06/07/18 19:20 Absolute Lymphs (auto) 0.16 10^3/uL (1.00-3.00) L 06/07/18 19:20 Absolute Monos (auto) 0.02 10^3/uL (0.30-0.80) L 06/07/18 19:20 Absolute Eos (auto) 0.01 10^3/uL (0.03-0.40) L 06/07/18 19:20 Absolute Basos (auto) 0.00 10^3/uL (0.02-0.10) L 06/07/18 19:20 Absolute Nucleated RBC 0.00 10^3/uL (0-0.01) 06/07/18 19:20 Immature Gran % 0.5 % (0.0-1.1) 06/07/18 19:20 Immature Gran # 0.01 10^3/uL (0.00-0.10) 06/07/18 19:20 Platelet Estimate Not Reported 06/07/18 19:20 VBG Lactic Acid 1.1 mmol/L (0.7-2.1) 06/07/18 20:15 Sodium 128 mEq/L (135-145) L 06/07/18 19:20 Potassium 3.6 mEq/L (3.3-5.0) 06/07/18 19:20 Chloride 93 mEq/L (97-110) L 06/07/18 19:20 Carbon Dioxide 23 mEq/l (22-31) 06/07/18 19:20 Anion Gap 12 mEq/L (8-16) 06/07/18 19:20 BUN 25 mg/dL (7-23) H 06/07/18 19:20 Creatinine 0.8 mg/dL (0.6-1.0) 06/07/18 19:20 Estimated GFR > 60 06/07/18 19:20 Glucose 131 mg/dL (70-100) H 06/07/18 19:20 Calcium 8.8 mg/dL (8.5-10.4) 06/07/18 19:20 Total Bilirubin 0.9 mg/dL (0.1-1.4) 06/07/18 19:20 Conjugated Bilirubin 0.3 mg/dL (0.0-0.5) 06/07/18 19:20 Unconjugated Bilirubin 0.6 mg/dL (0.0-1.1) 06/07/18 19:20 AST 59 IU/L (14-46) H 06/07/18 19:20 ALT 62 IU/L (9-52) H 06/07/18 19:20 Alkaline Phosphatase 81 IU/L (38-126) 06/07/18 19:20 Total Protein 6.4 g/dL (6.3-8.2) 06/07/18 19:20 Albumin 3.4 g/dL (3.5-5.0) L 06/07/18 19:20 Lipase < 10 IU/L (23-300) L 06/07/18 19:20 Visualized and Interpreted Chest x-ray results: Yes Chest X-Ray results: no infiltrate Visualized and Interpreted imaging results: Yes EKG Interpretation: Positive for: right bundle branch block EKG additional interpertation: RBBB is chronic, prior ekg reviewed Assessment & Plan Assessment: Fever without a source - CXR clear, no neutropenia. PORT site without erythema or e/o infection. Urinary symptoms noted, suspect UTI. Also consider drug fever. -send UA and UCx, will dose IV Ceftriaxone due to suspicion for UTI -BCx's pending Hypotension - lactate normal, suspect hypovolemia, improving with IVF's -cont IVF's, prn bolus -has PORT in the event pressors are needed -hold spironolactone Pancreatic cancer (Acute) - s/p whipple in 07/2016, was in remission for >1 yr, now with metastatic disease to the lymphatic system. Followed by Dr. Amaro. Received 2nd round of chemo with Gemcitabine and Abraxane yesterday. -oncology consult tomorrow (I have not discussed case with onc darrion) Pancytopenia - 2/2 chemo. No indication for transfusion at this time. -follow Hyponatremia (Acute) - possibly hypovolemic. Also note use of Spironolactone. -NS overnight -send urine osm, urine Na for further evaluation Hypothyroidism - cont home meds Hyperlipidemia - cont statin Full code DVT PPLX - SCD's, defer lovenox with low plts Dispo - admit to inpt, anticipate >48 hrs hospitalization for ongoing evaluation of fever and hyponatremia
[2018-06-07] MEDS: NS 1,000 ML IV SCH (22:12)
[2018-06-07] MEDS ORDERED: D50W 25 GM/50 ML SYR IVP PRN (22:35)
[2018-06-07] MEDS: DEXAMETHASONE 4 MG TAB PO SCH (22:38)
[2018-06-07] MEDS: ACETAMINOPHEN 325 MG TAB PO PRN (22:38)
[2018-06-07] MEDS ORDERED: NS 500 ML IV ONE (22:49)
[2018-06-08] MEDS: NS 1,000 ML IV SCH (05:53)
[2018-06-08] MEDS: THYROID 60 MG TAB PO SCH (05:53)
--- NOTE | 2018-06-08 06:04 | PDMN ---
Medical Necessity Medical necessity: Pt meets inpt criteria per MD order and Systemic or Infectious Condition GRG. 77 y/o w/h/o pancreatic cancer, s/p whipple in 2015 in remission>1 yr, recurrence w/mets to lymphatic system, recently restarted on chemo, now admitted with worsening weakness and fevers up to 103, unknown source, suspect UTI. Pt also presents w/hyponatremia 128, hypotension 87 /58, tachycardia 104, pancytopenia. IVF, IV ABX's, blood and urine cultures pending, anticipate>2MN for ongoing evaluation/treatment.
[2018-06-08 06:13] LABS: PLATELET COUNT 67 10^3/uL (150-400)
[2018-06-08] MEDS ORDERED: ENOXAPARIN 40 MG/0.4 ML SYR SC SCH (09:00)
--- NOTE | 2018-06-08 10:16 | HOSPPROG ---
Hospitalist Progress Note Assessment/Plan: * fever with positive blood cultures -possible strep viridans * ID will see today * Received ceftriaxone * Will defer changing antibiotics to Infectious Disease * Will order echocardiogram *Hypotension - lactate normal, suspect hypovolemia, improving with IVF's * Improved * Continue holding diuretics *Pancreatic cancer (Acute) - s/p whipple in 07/2016, was in remission for >1 yr , now with metastatic disease to the lymphatic system. Followed by Dr. Amaro. Received 2nd round of chemo with Gemcitabine and Abraxane yesterday. * Discussed with Oncology Pancytopenia - 2/2 chemo. No indication for transfusion at this time. * Not neutropenic Hyponatremia (Acute) - possibly hypovolemic. Also note use of Spironolactone. * Sodium better today * DM2 * Continue insulin * Blood sugars high probably due to steroids Hypothyroidism - cont home meds Hyperlipidemia - cont statin Full code DVT PPLX - SCD's, defer lovenox with low plts Dispo - admit to inpt, anticipate >48 hrs hospitalization for ongoing evaluation of fever and hyponatremia Subjective: Feels better. No new complaints Objective: Vital Signs Temp Pulse Resp BP Pulse Ox 36.9 C 87 16 92/64 L 95 06/08/18 03:46 06/08/18 07:57 06/08/18 07:57 06/08/18 07:57 06/08/18 07:57 Laboratory Results 06/08/18 06:00 06/08/18 06:00 06/07/18 06/08/18 06/09/18 05:59 05:59 05:59 Intake Total 3960 Output Total 2125 Balance 1835 - Physical Exam Constitutional: no apparent distress, appears nourished, not in pain Eyes: anicteric sclera, EOMI Ears, Nose, Mouth, Throat: moist mucous membranes, hearing normal Cardiovascular: regular rate and rhythym, no murmur, rub, or gallop Respiratory: no respiratory distress, no rales or rhonchi, clear to auscultation Gastrointestinal: normoactive bowel sounds, soft, non-tender abdomen, no palpable masses Skin: warm Neurologic: AAOx3 Psychiatric: interacting appropriately, not anxious, not encephalopathic, thought process linear ICD10 Worksheet Patient Problems: Problems Problem Status Onset Chemotherapy-induced thrombocytopenia Acute Hyponatremia Acute Leukopenia Acute Pancreatic cancer Acute Thrombocytopenia Acute Abdominal pain Acute Abnormal EKG Acute Abnormal LFTs Acute Fatigue Acute Vomiting Acute
[2018-06-08] MEDS: INSULIN LISPRO 100 UNIT/ML SC SCH ×4 (10:46→21:45)
[2018-06-08] MEDS: CHOLECALCIFEROL VIT D3 1,000 UNITS TAB PO SCH (10:50)
[2018-06-08] MEDS: PRAVASTATIN SODIUM 20 MG TAB PO SCH (10:50)
[2018-06-08] MEDS: DEXAMETHASONE 4 MG TAB PO SCH ×2 (10:51→19:52)
[2018-06-08] MEDS: LIPASE 24,000/AMYLASE/PROTEASE (CREON) 1 CAP PO SCH ×3 (10:51→17:41)
--- NOTE | 2018-06-08 13:39 | ASMTCMCOM ---
CM Note CM Note Notes: CM reviewed chart and participated in rounds for d/c planning. Pt is a 77 y/o female, diagnosed with pancreatic cancer, who presented at the ED with c/o fatigue, fever and weakness. She is positive for a strain of strep. PT completed their eval and d/c PT with a recommendation for home. Pt is current with [facility] for RN and this will be continued upon d/c. she will most likely be needing IV anti-biotics when d/c'ed. A referral was made to [facility]. RICK to follow. D/C Plan: Home with [facility] RN and [facility]. Date Signed: 06/08/2018 01:39 PM Electronically Signed By:Martine Baptiste
--- NOTE | 2018-06-08 13:54 | ASMTCMCOM ---
CM Note CM Note Notes: [facility] has accepted Pt. They would like to be told which medicine infectious disease will be prescribing as soon as that is known. Pt will have a co-pay, the amount depending on the medication. D/C Plan: Home with [facility] and [facility]. Date Signed: 06/08/2018 01:54 PM Electronically Signed By:Martine Baptiste
--- NOTE | 2018-06-08 14:58 | PDCONSULT ---
Medical Hospital Sales Note: History of Present Illness: Patient is a 77 year old female day #10 of gem/abraxane admitted for fever and bacteremia. Patient has a history of localized pancreatic cancer status post Whipple. She was recently found to have metastatic disease and started on palliative gem/ Abraxane on 05/30/18. She received day #8 gemcitabine on Monday. Around that day she had some shaking chills. The shaking chills returned the next day and she was found to be febrile to 103F. She also had weakness and fell to her hands and knees without LOC. The day of presentation she had some fevers and was sent to the ER. Blood culture gram stain showed gram positive cocci in chains. She was started on cetriaxone. She denies chest pains or cough. No dysuria. No skin rash. Review of systems: A complete 12 point ROS was obtained and found to be negative unless indicated in the HPI PMH -Metastatic pancreatic cancer -DM type II secondary to pancreatic resection PSH -Whipple procedure 09/02/16 SH - Smoked 3 yrs in college, no significant history of alcohol drugs or tobacco - FH -Father had lung cancer -Mother had colon cancer at age 7575 years old Physical examination: Vital Signs General: No acute distress, non toxic HEENT: PERRL, no icterus or pallor, no oral lesions CV: RRR without rubs thrills or gallops Chest: CTA and percussion in bilateral posterior lungs, port site upper left chest Abdomen: soft, nontender, no HSM Extremities: warm and well perfused without edema Neurologic: CN II-XII intact Labs reviewed Imaging reviewed Chest X-ray normal Assessment and Plan: Patient is a 77 year old female with recent diagnosis of metastatic pancreatic cancer admitted with fevers/chills found to have bacteremia. #Gram positive bacteremia Likely source is from GI tract secondary to mucositis from chemotherapy. Other considerations would be primary bacteremia from port. Currently on ceftriaxone which should be adequate. -ID is following, continue antibiotics #Metastatic pancreatic cancer Started palliative gem/abraxane 05/30/18. Had whipple 09/02/2016 with recent metastatic disease relapse. -continue pancreatic enzymes #Pancytopenia secondary to chemotherapy Not neutropenic, no indication for GCSF. No indication for transfusion. Kwame Pleitez
--- NOTE | 2018-06-08 19:09 | GCON ---
INFECTIOUS DISEASE CONSULTATION DATE OF CONSULTATION: 06/08/2018 REFERRING PHYSICIAN: Nitza Hathaway MD REASON FOR CONSULTATION: Gram-positive bacteremia. HISTORY OF PRESENT ILLNESS: The patient is a 77-year-old female with a past medical history of pancr eatic cancer with recent diagnosis of metastatic disease and initiation of palliative chemotherapy wi th gemcitabine and Abraxane on 05/30/2018, who is seen in consultation for gram-positive bacteremia. The patient describes in the preceding 2 days prior to hospital admission that she had fever and sha yeyo chills. The day of presentation, she notes her fever was as high as 103 degrees. The patient h ad concomitant weakness and noted that while in the bathroom she fell to her hands and knees. She di d not note any oral ulcerations. No sore throat. No cough or shortness of breath. No abdominal loida n. She has had some nausea, but no vomiting or diarrhea. No myalgias or arthralgias. The patient h ad mild leukopenia at presentation, but was not neutropenic. Blood cultures were obtained and both s ets are showing growth of gram-positive cocci in chains, which by PCR identification is noted to be a Streptococcus, not group A, B or Streptococcus pneumoniae with further identification pending. The patient notes that she feels better since hospitalization. She has been receiving ceftriaxone. Give n the above findings, I am now asked to assist in her ongoing management. PAST MEDICAL HISTORY: Metastatic pancreatic cancer, type 2 diabetes mellitus. PAST SURGICAL HISTORY: Whipple procedure in 2016. CURRENT MEDICATIONS: Ceftriaxone 1 g IV daily, Creon 1 cap p.o. t.i.d., vitamin D 4000 units p.o. da alex, Decadron 10 mg p.o. b.i.d., Pravachol 20 mg p.o. daily, [place] Thyroid 90 mg p.o. daily. ALLERGIES: No known drug allergies. SOCIAL HISTORY: Patient does not smoke, drink alcohol, or use drugs. No unusual animal exposures. No recent travel history. FAMILY HISTORY: Lung cancer, colon cancer. REVIEW OF SYSTEMS: Outside that noted in the HPI, the remainder of 10-system review is unremarkable. PHYSICAL EXAMINATION: VITAL SIGNS: Temperature maximum 38.1, temperature current 37.0, heart rate 9 1, respiratory rate 16, blood pressure 99/61, oxygen saturation 94% on room air. GENERAL: Patient i s well-nourished, well-developed, in no acute distress. She appears nontoxic. HEENT: There is no s cleral icterus, conjunctival injection, or conjunctival petechiae. Oropharynx shows dry mucous membr anes with no mucositis. Dentition is in fair repair. There is no nasal discharge. There is no tend erness over the frontal, maxillary, or mastoid area. NECK: Supple without palpable lymphadenopathy or thyromegaly. CHEST: Clear to auscultation bilaterally without adventitious sounds. A port is pr esent in the left upper chest without erythema or tenderness. CARDIOVASCULAR: Regular rate and rhyt hm without murmurs, gallops, or rubs. ABDOMEN: Soft, nontender, nondistended. Bowel sounds are pre sent. No palpable organomegaly. MUSCULOSKELETAL: There is no cyanosis, clubbing, or edema. SKIN: No rashes present. No stigmata of endocarditis. Skin is warm and dry to touch. NEUROLOGIC: Patie nt is alert and interacts appropriately with examiner. Cranial nerves 2 through 12 are grossly intac t. Sensation is grossly intact. Muscle tone and bulk are normal. LYMPHATICS: No cervical, supracl avicular, or inguinal nodes palpable. LABORATORY DATA: White blood cell count 2.6, hematocrit 32.5, platelets 67, neutrophils 94%. Serum creatinine 0.6, AST 56, ALT 58, alkaline phosphatase 63, bilirubin 0.6, albumin 2.8, lipase less than 10, hemoglobin A1c 10.2. Urinalysis is negative. Blood cultures with 2 of 2 sets showing gram-posi tive cocci in chains, which has been identified to Streptococcus species without definitive ID by PCR testing. Chest x-ray shows no evidence of pneumonia. IMPRESSION: 1. Streptococcal bacteremia: No clearly defined focus for the patient's bacteremia. Most likely et iologies will be either oropharyngeal or gastrointestinal. At risk for translocation with recent earnestine motherapy, although is not neutropenic. Await further identification and susceptibility testing on t he isolate to determine further diagnostic testing. If oropharyngeal Streptococcus present, will pro ceed with transthoracic echocardiogram to ensure no evidence of endocarditis. If intraabdominal stre ptococcal species such as Streptococcus intermedius or anginosus, would proceed with CT scan of abdom en and pelvis to ensure no focal findings. RECOMMENDATIONS: 1. Increase ceftriaxone to 2 g IV q.24 hours. 2. Repeat blood cultures to document clearing of bacteremia. 3. Await identification susceptibility testing of streptococcal species. 4. Follow clinical course in response to above measures. Thank you for this consultation. We will continue to follow the patient with you. /[id number]/MODL
[2018-06-09 05:28] LABS: PLATELET COUNT 66 10^3/uL (150-400)
[2018-06-09] MEDS: THYROID 60 MG TAB PO SCH (06:38)
[2018-06-09] MEDS: LIPASE 24,000/AMYLASE/PROTEASE (CREON) 1 CAP PO SCH ×3 (08:26→17:43)
[2018-06-09] MEDS: PRAVASTATIN SODIUM 20 MG TAB PO SCH (08:26)
[2018-06-09] MEDS: DEXAMETHASONE 4 MG TAB PO SCH ×2 (08:26→22:13)
[2018-06-09] MEDS: CHOLECALCIFEROL VIT D3 1,000 UNITS TAB PO SCH (08:27)
[2018-06-09] MEDS: INSULIN LISPRO 100 UNIT/ML SC SCH ×4 (08:27→22:13)
--- NOTE | 2018-06-09 09:51 | HOSPPROG ---
Hospitalist Progress Note Assessment/Plan: * Strep bacteremia -possible strep viridans vs anginosus. Discussed with ID, suspicious that PORT is source * Continue Ceftriaxone, increased to 2 g IV daily per ID * Follow Cx and sensitivities * Discussed PORT removal with Dr. Walsh *Hypotension - in setting of infection, volume depletion. Improved today. Taking po well D/C IVF's *Pancreatic cancer (Acute) - s/p whipple in 07/2016, was in remission for >1 yr , now with metastatic disease to the lymphatic system. Followed by Dr. Amaro. Received 2nd round of chemo with Gemcitabine and Abraxane 06/06. * Discussed with Oncology Pancytopenia - 2/2 chemo. No indication for transfusion at this time. * ANC 1100, follow Hyponatremia (Acute) - possibly hypovolemic, likely needs solute. Also note use of Spironolactone. * Na 128 --> 131, follow * encouraged solute intake * DM2 * Continue insulin * Blood sugars high probably due to steroids Hypothyroidism - cont home meds Hyperlipidemia - cont statin Full code Subjective: Pt feels better. No more fevers/chills. Taking po fairly well. Denies abdominal pain, N/V or diarrhea. Objective: Vital Signs Temp Pulse Resp BP Pulse Ox 36.5 C 76 16 98/54 L 96 06/09/18 08:17 06/09/18 08:17 06/09/18 08:17 06/09/18 09:02 06/09/18 08:17 Laboratory Results 06/09/18 05:14 06/09/18 05:14 06/08/18 06/09/18 06/10/18 05:59 05:59 05:59 Intake Total 3960 1740 Output Total 2125 3250 Balance 1835 -1510 - Physical Exam Constitutional: no apparent distress Eyes: PERRL Ears, Nose, Mouth, Throat: moist mucous membranes Cardiovascular: regular rate and rhythym Respiratory: no respiratory distress, clear to auscultation Gastrointestinal: normoactive bowel sounds, soft, non-tender abdomen Skin: warm Musculoskeletal: full muscle strength Neurologic: AAOx3 Psychiatric: interacting appropriately ICD10 Worksheet Patient Problems: Problems Problem Status Onset Chemotherapy-induced thrombocytopenia Acute Hyponatremia Acute Leukopenia Acute Pancreatic cancer Acute Thrombocytopenia Acute Abdominal pain Acute Abnormal EKG Acute Abnormal LFTs Acute Fatigue Acute Vomiting Acute
--- NOTE | 2018-06-09 11:52 | PCMIDPN ---
Assessment/Plan: Assessment: Streptococcal bacteremia with unclear source. Further history reveals the patient had similar rigors fever and malaise following her chemotherapy infusions a week prior to admission. The symptoms for this admission also began after her infusions through the PowerPort. This port has been in since September of last year. And there is no obvious sign or symptom apart from the history that the port may be involved. However I do believe that that history is very compelling at calling the contamination of the port into question. Currently will continue treatment with ceftriaxone. Will redraw blood cultures today to prove clearance. Discussed case with Dr. Cates who will contact Dr. Walsh about potential port removal. Plan: 1. Continue IV ceftriaxone. 2. Consult with General surgery about port. 3. Follow up on speciation and sensitivity of Streptococcus. 4. Follow-up blood cultures today. 06/09/18 11:48 Subjective: Patient is resting in her hospital chair. Family is present in the room. She states she feels similar to yesterday. She denies any further fevers or chills. She denies abdominal pain. No complaint about the port in her left chest. Objective: Ceftriaxone # 3 Vital Signs Temp Pulse Resp BP Pulse Ox 36.5 C 76 16 98/54 L 96 06/09/18 08:17 06/09/18 08:17 06/09/18 08:17 06/09/18 09:02 06/09/18 08:17 Laboratory Results 06/09/18 05:14 06/09/18 05:14 06/08/18 06/09/18 06/10/18 05:59 05:59 05:59 Intake Total 3960 1740 Output Total 2125 3250 Balance 1835 -1510 - Physical Exam General Appearance: WD/WN, alert, no apparent distress, non-toxic Respiratory: lungs clear, normal breath sounds, No respiratory distress Cardiac/Chest: regular rate, rhythm, other (Port left chest without significant erythema.-currently accessed.), No tachycardia, No systolic murmur Extremities: non-tender, normal inspection Skin: normal color, warm/dry, No rash Neuro/Psych: alert, normal mood/affect, oriented x 3 ICD10 Worksheet Patient Problems: Problems Problem Status Onset Chemotherapy-induced thrombocytopenia Acute Hyponatremia Acute Leukopenia Acute Pancreatic cancer Acute Thrombocytopenia Acute Abdominal pain Acute Abnormal EKG Acute Abnormal LFTs Acute Fatigue Acute Vomiting Acute
--- NOTE | 2018-06-09 13:38 | SOAPPROG ---
SOAP Progress Note Assessment/Plan: Assessment: - Strep sepsis - probable port source. ID/C&S pending. Port should be removed. Dr. Walsh was notified and will see the patient - Metastatic pancreatic CA - just started on palliative treatment with Power/ Abraxane. She is due this week for treatment, but will likely hold for a week to make sure bacteremia has cleared. She may need a PICC temporarily Plan: - Abx per ID - port removal per Dr. Walsh - Hold chemo for now - probably delay 1 week. 06/09/18 13:33 Subjective: No complaints. Visiting with family. Eating soup. Objective: Vital Signs Temp Pulse Resp BP Pulse Ox 36.5 C 76 16 98/54 L 96 06/09/18 08:17 06/09/18 08:17 06/09/18 08:17 06/09/18 09:02 06/09/18 08:17 Laboratory Results 06/09/18 05:14 06/09/18 05:14 06/07/18 06/08/18 06/09/18 23:59 23:59 23:59 Intake Total 2450 1510 1740 Output Total 3775 1600 Balance 2450 -2265 140 Physical Exam - Physical Exam General Appearance: alert, no apparent distress Neck: non-tender Respiratory: lungs clear Cardiac/Chest: regular rate, rhythm Abdomen: normal bowel sounds Neuro/Psych: alert, normal mood/affect, oriented x 3 ICD10 Worksheet Patient Problems: Problems Problem Status Onset Chemotherapy-induced thrombocytopenia Acute Hyponatremia Acute Leukopenia Acute Pancreatic cancer Acute Thrombocytopenia Acute Abdominal pain Acute Abnormal EKG Acute Abnormal LFTs Acute Fatigue Acute Vomiting Acute
[2018-06-09] MEDS ORDERED: LIDO/EPI 1% **for epidural** 30 ML SDV ONE (17:02)
--- NOTE | 2018-06-09 18:06 | SOAPPROG ---
SOAP Progress Note Assessment/Plan: Assessment: 78 FEMALE WITH POSITIVE BLOOD CULTURES FOR STREPTOCOCCUS WHILE ON CHEMOTHERAPY SUSPECT THAT THIS IS A SOURCE OF INFECTION AND WILL NEED TO BE REMOVED HEENT NONICTERIC NO ADENOPATHY CHEST CLEAR AND SYMMETRIC COR REGULAR RHYTHM ABDOMEN SOFT PORT FUNCTIONING WELL BUT DOES APPEAR TO BE POTENTIALLY INFECTED Plan: I AND D AND PORT REMOVED/RISKS AND OPTIONS FULLY DISCUSSED 06/09/18 18:04 Objective: Vital Signs Temp Pulse Resp BP Pulse Ox 36.7 C 82 16 110/60 99 06/09/18 17:01 06/09/18 17:01 06/09/18 17:01 06/09/18 17:01 06/09/18 17:01 Laboratory Results 06/09/18 05:14 06/09/18 05:14 06/08/18 06/09/18 06/10/18 05:59 05:59 05:59 Intake Total 3960 1740 Output Total 7495 3250 Balance 1835 -1510 ICD10 Worksheet Patient Problems: Problems Problem Status Onset Chemotherapy-induced thrombocytopenia Acute Hyponatremia Acute Leukopenia Acute Pancreatic cancer Acute Thrombocytopenia Acute Abdominal pain Acute Abnormal EKG Acute Abnormal LFTs Acute Fatigue Acute Vomiting Acute
[2018-06-09] MEDS: INSULIN GLARGINE 100 UNITS/ML UNIT SC SCH (22:14)
[2018-06-10 04:01] LABS: PLATELET COUNT 70 10^3/uL (150-400)
[2018-06-10] MEDS: THYROID 60 MG TAB PO SCH (05:18)
--- NOTE | 2018-06-10 07:29 | POSTOPPROG ---
Post Op Note Date of Operation: 06/09/18 Surgeon: Brad Walsh Anesthesia: Local (Specify) Pre-op Diagnosis: BACTEREMIA Post-op Diagnosis: SAME Indication: SAME Procedure: PORT REMOVAL Findings: MINIMAL SIGNS OF INFECTION Inf/Abcess present in the surg proc area at time of surgery?: Yes Depth: Superfical (Skin SQ) EBL: Minimal Complications: 0 Specimen(s): PORT
[2018-06-10] MEDS: LIPASE 24,000/AMYLASE/PROTEASE (CREON) 1 CAP PO SCH ×3 (08:38→18:00)
[2018-06-10] MEDS: CHOLECALCIFEROL VIT D3 1,000 UNITS TAB PO SCH (08:38)
[2018-06-10] MEDS: DEXAMETHASONE 4 MG TAB PO SCH ×2 (08:38→21:48)
[2018-06-10] MEDS: INSULIN LISPRO 100 UNIT/ML SC SCH ×4 (08:38→21:48)
--- NOTE | 2018-06-10 09:24 | SOAPPROG ---
SOAP Progress Note Assessment/Plan: Assessment: 78 FEMALE WITH POSITIVE BLOOD CULTURES FOR STREPTOCOCCUS WHILE ON CHEMOTHERAPY SUSPECT THAT THIS IS A SOURCE OF INFECTION AND WILL NEED TO BE REMOVED HEENT NONICTERIC NO ADENOPATHY CHEST CLEAR AND SYMMETRIC COR REGULAR RHYTHM ABDOMEN SOFT PORT FUNCTIONING WELL BUT DOES APPEAR TO BE POTENTIALLY INFECTED Plan: I AND D AND PORT REMOVED/RISKS AND OPTIONS FULLY DISCUSSED 06/09/18 18:04 06/10/18 09:23 WOUND OKAY/AFEBRILE/NO NEW PROBLEMS EXCEPT WBC DOWN TO 1000 WILL NEED A NEW PORT WHEN HER WHITE COUNT REBOUNDS Objective: Vital Signs Temp Pulse Resp BP Pulse Ox 36.3 C 71 14 120/66 91 L 06/10/18 07:22 06/10/18 07:22 06/10/18 07:22 06/10/18 07:22 06/10/18 07:22 Microbiology 06/09/18 19:30 Gram Stain - Final Chest - Swab Laboratory Results 06/10/18 03:43 06/10/18 03:43 06/09/18 06/10/18 06/11/18 05:59 05:59 05:59 Intake Total 1740 500 Output Total 3250 1900 Balance -1510 -1400 ICD10 Worksheet Patient Problems: Problems Problem Status Onset Chemotherapy-induced thrombocytopenia Acute Hyponatremia Acute Leukopenia Acute Pancreatic cancer Acute Thrombocytopenia Acute Abdominal pain Acute Abnormal EKG Acute Abnormal LFTs Acute Fatigue Acute Vomiting Acute
[2018-06-10] MEDS: PRAVASTATIN SODIUM 20 MG TAB PO SCH (10:11)
--- NOTE | 2018-06-10 12:25 | GOP ---
DATE OF OPERATION: 06/09/2018 SURGEON: Brad Walsh MD PREOPERATIVE DIAGNOSIS: Bacteremia. POSTOPERATIVE DIAGNOSIS: Bacteremia. PROCEDURE PERFORMED: Removal of subcutaneous port. FINDINGS: minimal signs of infection DESCRIPTION OF PROCEDURE: Patient was in her bed in her room. We prepped and draped in the usual sterile fashion. The area was infiltrated with 1% Xylocaine local infiltration. A transverse incision was made through the previous incision and the pocket was entered. The port was grasped, then freed up and removed. The tip of the port was cultured and the pocket was cultured, although there was no obvious purulence in the pocket. The wound was packed with iodoform gauze. She tolerated the procedure well. No complications. /[id number]/MODL MTDD
--- NOTE | 2018-06-10 13:44 | HOSPPROG ---
Hospitalist Progress Note Assessment/Plan: 78 yo F with hx of recurrent pancreatic cancer presenting with strep bacteremia presumably due to infected PORT # Strep bacteremia -strep dysgalactiae noted on cultures from 06/07, repeat cultures from 06/09 negative thus far. Continued on CTX 2g IV daily, no great oral options and will likely need to dc on IV abx. Port has been removed by gen surg yesterday. # Pancreatic cancer - s/p whipple in 07/2016, with recurrence. Followed by Dr. Amaro. Received 2nd round of chemo with Gemcitabine and Abraxane 06/06. Given that port has been removed, patient may require PICC prior to dc * Discussed with Oncology # Hypotension - in setting of infection, volume depletion. Now resolved # Pancytopenia - 2/2 chemo. WBC still trending down, h/h and plts stable, continue to trend. # Hyponatremia (Acute) - improved, presumably due to hypovolemic hyponatremia # DM2: continue SSI as well as lantus # Hypothyroidism - cont home meds # Hyperlipidemia - cont statin Full code IP status, likely ready to dc in coming 1-2 days, discussed with oncology and ID as above. Further hx obtained from family present at bedside. Subjective: no significant overnight events, patient notes that she is overall feeling better, she has been able to eat and drink some though very little appetite currently Objective: Vital Signs Temp Pulse Resp BP Pulse Ox 36.4 C 69 14 114/68 92 06/10/18 11:17 06/10/18 11:17 06/10/18 11:17 06/10/18 11:17 06/10/18 11:17 Microbiology 06/09/18 19:30 Gram Stain - Final Chest - Swab Laboratory Results 06/10/18 03:43 06/10/18 03:43 06/09/18 06/10/18 06/11/18 05:59 05:59 05:59 Intake Total 1740 500 Output Total 3250 1900 Balance -1510 -1400 awake alert anicteric op clear rrr no mrg cta b soft nt nd no cce warm dry well perfused oriented appropriate - Time Spent With Patient Time Spent with Patient: greater than 35 minutes Time Spent with Patient: Greater than 35 minutes spent on this patients care, greater than 50% of time spent counseling, educating, and coordinating care regarding the above mentioned plan. ICD10 Worksheet Patient Problems: Problems Problem Status Onset Fatigue Acute Abnormal LFTs Acute Abnormal EKG Acute Vomiting Acute Abdominal pain Acute Hyponatremia Acute Thrombocytopenia Acute Pancreatic cancer Acute Chemotherapy-induced thrombocytopenia Acute Leukopenia Acute
--- NOTE | 2018-06-10 14:11 | SOAPPROG ---
SOAP Progress Note Assessment/Plan: Assessment: - Strep sepsis - probable port source. ID/C&S pending. Port removed [address] Walsh. - Metastatic pancreatic CA - just started on palliative treatment with [place]/ Abraxane. She is due this week for treatment, but will likely hold for a week to make sure bacteremia has cleared. New port when cleared by ID (probably Monday if blood cultures are negative). Plan: - Abx per ID - port removal per Dr. Walsh - Hold chemo for now - probably delay 1 week. Subjective: No complaints. Feels ok Objective: Vital Signs Temp Pulse Resp BP Pulse Ox 36.4 C 69 14 114/68 92 06/10/18 11:17 06/10/18 11:17 06/10/18 11:17 06/10/18 11:17 06/10/18 11:17 Microbiology 06/09/18 19:30 Gram Stain - Final Chest - Swab Laboratory Results 06/10/18 03:43 06/10/18 03:43 06/08/18 06/09/18 06/10/18 23:59 23:59 23:59 Intake Total 1510 1740 500 Output Total 3775 2200 1300 Balance -2265 -460 -800 Physical Exam - Physical Exam General Appearance: alert, no apparent distress Respiratory: lungs clear Cardiac/Chest: regular rate, rhythm Abdomen: non-tender Skin: other (site of port removal L chest not tender) Neuro/Psych: alert, normal mood/affect, oriented x 3 ICD10 Worksheet Patient Problems: Problems Problem Status Onset Chemotherapy-induced thrombocytopenia Acute Hyponatremia Acute Leukopenia Acute Pancreatic cancer Acute Thrombocytopenia Acute Abdominal pain Acute Abnormal EKG Acute Abnormal LFTs Acute Fatigue Acute Vomiting Acute
--- NOTE | 2018-06-10 14:45 | ASMTCMCOM ---
CM Note CM Note Notes: 06/10/2018 Case Management Note Discussed with RN. Pt port removed yesterday. Cultures pending. Anticipating d/c on IV antibiotics, will need PICC or port placed prior to d/c. Faxed updates to [facility] home care. Anticipating d/c early in the week. Case Management d/c poc: resume [facility] services with [facility] providing IV antibiotics. Case Management will follow. Date Signed: 06/10/2018 02:45 PM Electronically Signed By:Violet Rivas RN
--- NOTE | 2018-06-10 14:59 | PCMIDPN ---
Assessment/Plan: Assessment/Plan: * Group C/G streptococcal bacteremia: No clearly identified etiology with considerations including port versus intra-abdominal source. Port has been removed with port culture currently pending. Repeat blood culture show no growth to date. Will obtain echocardiogram as group C/G streptococcal bacteremia can be associated with endocarditis. Should be able to have new port placed on 06/12/18 if blood cultures remain negative. Continue ceftriaxone 2 g IV Q 24 hr. Follow up repeat blood cultures over time. 06/10/18 14:56 Subjective: Patient without specific complaint other than fatigue. No abdominal pain. Port removed yesterday. Objective: Vital Signs Temp Pulse Resp BP Pulse Ox 36.4 C 69 14 114/68 92 06/10/18 11:17 06/10/18 11:17 06/10/18 11:17 06/10/18 11:17 06/10/18 11:17 Microbiology 06/09/18 19:30 Gram Stain - Final Chest - Swab Laboratory Results 06/10/18 03:43 06/10/18 03:43 06/09/18 06/10/18 06/11/18 05:59 05:59 05:59 Intake Total 1740 500 Output Total 3250 1900 Balance -1510 -1400 Ceftriaxone #4 Blood cultures 06/09/2018 no growth to date - Physical Exam General Appearance: alert, no apparent distress EENT: No scleral icterus, No conjunctival petechiae Respiratory: lungs clear, No respiratory distress Cardiac/Chest: regular rate, rhythm, No systolic murmur Extremities: No inflammation Abdomen: non-tender, No distended Skin: rash (Skin rash over right anterior gary which historically is improving) ICD10 Worksheet Patient Problems: Problems Problem Status Onset Chemotherapy-induced thrombocytopenia Acute Hyponatremia Acute Leukopenia Acute Pancreatic cancer Acute Thrombocytopenia Acute Abdominal pain Acute Abnormal EKG Acute Abnormal LFTs Acute Fatigue Acute Vomiting Acute
[2018-06-10] MEDS: ACETAMINOPHEN 325 MG TAB PO PRN (18:00)
[2018-06-10] MEDS: INSULIN GLARGINE 100 UNITS/ML UNIT SC SCH (21:47)
[2018-06-11] MEDS: THYROID 60 MG TAB PO SCH (05:13)
--- NOTE | 2018-06-11 08:20 | SOAPPROG ---
SOAP Progress Note Assessment/Plan: Assessment/Plan: 78 Y F c pancreatic CA on chemo now s/p port removal fpor presumed infection. To OR tomorrow for power port replacement c flouro if ok with other teams. Risks and options discussed. S: no complaints. O: alert, nad port site wound clean, some sanguinous oozing stopped easily with pressure. no wob rrr abd soft 06/11/18 09:40 Objective: Vital Signs Temp Pulse Resp BP Pulse Ox 36.4 C 73 16 118/66 93 06/11/18 08:00 06/11/18 08:00 06/11/18 08:00 06/11/18 08:00 06/11/18 08:00 Microbiology 06/09/18 19:30 Gram Stain - Final Chest - Swab Laboratory Results 06/10/18 03:43 06/10/18 03:43 06/10/18 06/11/18 06/12/18 05:59 05:59 05:59 Intake Total 500 1280 Output Total 1900 Balance -1400 1280 ICD10 Worksheet Patient Problems: Problems Problem Status Onset Chemotherapy-induced thrombocytopenia Acute Hyponatremia Acute Leukopenia Acute Pancreatic cancer Acute Thrombocytopenia Acute Abdominal pain Acute Abnormal EKG Acute Abnormal LFTs Acute Fatigue Acute Vomiting Acute
[2018-06-11] MEDS: INSULIN LISPRO 100 UNIT/ML SC SCH ×4 (10:05→20:42)
[2018-06-11] MEDS: PRAVASTATIN SODIUM 20 MG TAB PO SCH (10:05)
[2018-06-11] MEDS: CHOLECALCIFEROL VIT D3 1,000 UNITS TAB PO SCH (10:05)
[2018-06-11] MEDS: LIPASE 24,000/AMYLASE/PROTEASE (CREON) 1 CAP PO SCH ×3 (10:05→18:25)
[2018-06-11] MEDS: DEXAMETHASONE 4 MG TAB PO SCH ×3 (12:11→20:41)
--- NOTE | 2018-06-11 15:12 | ECHO ---
[email or web address] [address] [address] Main: [phone] Fax: Transthoracic Echocardiogram Name: HAN HUNTER MR#: [id number] Study Date: 06/11/2018 Study Time: 01:39 PM Date of : 1940 Age: 78 year(s) Height: 160 cm (63 in.) Weight: 53.52 kg (118 lb.) BSA: 1.55 m2 Gender: Female Examination: Echo Indication: Group C/G streptococcal bacteremia Image Quality: Contrast: Requested by: Eugene White BP: / Heart Rate: Rhythm: Indication: Group C/G streptococcal bacteremia Procedure Staff Senior Instructor: Jazmyn Santos [facility] Reading Physician: Miguel Garcia MD Requesting Provider: Conclusions: Normal size left ventricle. Normal global systolic LV function. The ejection fraction is estimated to be 65-70 %. No regional wall motion abnormality. Mild mitral valve regurgitation is present. Trivial to mild aortic valve regurgitation. Mild tricuspid regurgitation is present. Trivial pericardial effusion. No obvious vegetations visualized.. No prior study for comparison. Measurements: Chambers Valvular Assessment AV/MV Valvular Assessment TV/PV Normal Normal Normal Name Value Range Name Value Range Name Value Range Ao Elvira (MM): 3.3 cm (2.2 cm-3.7 AV Vmax: 1.38 m/s (1 m/s-1.7 TR Vmax: 2.17 mm/s ( - ) cm) m/s) TR PGmax: 19 mmHg ( - ) IVSd (2D): 0.5 cm (0.6 cm-1.1 AV maxP mmHg ( - ) syst. PAP: 24 mmHg ( - ) cm) AV meanP mmHg ( - ) LVDd (2D): 4.7 cm (3.9 cm-5.3 MV E Vmax: 0.65 m/s ( - ) cm) MV A Vmax: 0.85 m/s ( - ) LVDs (2D): 2.9 cm (2.1 cm-4 MV E/A: 0.76 ( - ) cm) LVPWd (2D): 0.6 cm ( - ) LVEF (MOD4): 71 % (>=55 %) EF Range: 65-70 % Continued Measurements: Chambers Valvular Assessment AV/MV Valvular Assessment TV/PV Patient: HAN HUNTER Study Date: 06/11/2018 Page 1 of 2 01:39 PM Name Value Name Value Name Value LADs: 2.6 cm MV E/E' Septal: 11.80 CVP (est.): 5 mmHg LADs Lon.3 cm MV E/E' Lateral: 11.50 LA Area: 13.9 cm2 Additional Vessels Name Value Ao Ascendin.6 cm Findings: Left Ventricle: Normal size left ventricle. No LV hypertrophy. Normal global systolic LV function. The ejection fraction is estimated to be 65-70 %. No regional wall motion abnormality. Normal diastolic LV function. Right Ventricle: Normal size right ventricle. Left Atrium: The left atrium is normal in size. Right Atrium: The right atrium is normal in size. Mitral Valve: The mitral valve is normal in appearance and function. Mild mitral valve regurgitation is present. Aortic Valve: The aortic valve is normal in appearance and function. The aortic valve is tri-leaflet. Trivial to mild aortic valve regurgitation. Tricuspid Valve: The tricuspid valve is normal in appearance and function. Mild tricuspid regurgitation is present. Pulmonic Valve: The pulmonic valve is normal in appearance and function. Aorta: The aorta is normal. Pericardium: Trivial pericardial effusion. Exam Comments: No obvious vegetations visualized.. (No Signature Object) Patient: HAN HUNTER Study Date: 06/11/2018 Page 2 of 2 01:39 PM [id number]
--- NOTE | 2018-06-11 15:27 | HOSPPROG ---
Hospitalist Progress Note Assessment/Plan: 78 yo F with hx of recurrent pancreatic cancer presenting with strep bacteremia presumably due to infected PORT # Strep bacteremia -strep dysgalactiae noted on cultures from 06/07, repeat cultures from 06/09 negative thus far. Continued on CTX 2g IV daily, no great oral options and will likely need to dc on IV abx. Port has been removed by gen surg with a plan to replace it tomorrow 06/12. # Pancreatic cancer - s/p whipple in 07/2016, with recurrence. Followed by Dr. Amaro. Received 2nd round of chemo with Gemcitabine and Abraxane 06/06. # Hypotension - in setting of infection, volume depletion. Now resolved # Pancytopenia - 2/2 chemo. WBC still trending down, h/h and plts stable, continue to trend. # Hyponatremia (Acute) - improved, presumably due to hypovolemic hyponatremia # DM2: continue SSI as well as lantus # Hypothyroidism - cont home meds # Hyperlipidemia - cont statin Full code IP status, likely ready to dc in coming 1-2 days, discussed with oncology as above. Further hx obtained from family present at bedside. Subjective: no significant overnight events, patient states she is doing well, she is eager to dc Objective: Vital Signs Temp Pulse Resp BP Pulse Ox 36.4 C 69 16 118/60 93 06/11/18 11:46 06/11/18 11:46 06/11/18 11:46 06/11/18 11:46 06/11/18 11:46 Microbiology 06/09/18 19:30 Gram Stain - Final Chest - Swab Laboratory Results 06/10/18 03:43 06/10/18 03:43 06/10/18 06/11/18 06/12/18 05:59 05:59 05:59 Intake Total 500 1280 Output Total 1900 Balance -1400 1280 awake alert anicteric op clear rrr no mrg cta b soft nt nd no cce warm dry well perfused oriented appropriate - Time Spent With Patient Time Spent with Patient: greater than 35 minutes Time Spent with Patient: Greater than 35 minutes spent on this patients care, greater than 50% of time spent counseling, educating, and coordinating care regarding the above mentioned plan. ICD10 Worksheet Patient Problems: Problems Problem Status Onset Chemotherapy-induced thrombocytopenia Acute Hyponatremia Acute Leukopenia Acute Pancreatic cancer Acute Thrombocytopenia Acute Abdominal pain Acute Abnormal EKG Acute Abnormal LFTs Acute Fatigue Acute Vomiting Acute
--- NOTE | 2018-06-11 16:35 | PCMIDPN ---
Assessment/Plan: Assessment: Streptococcal bacteremia with unclear source. No status post port removal. Group C strep identified. Ceftriaxone will cover. Patient to get a port replaced tomorrow. She will then be discharged with a total of 2 weeks on IV ceftriaxone. No obvious vegetations on echocardiogram Plan: 1. Continue IV ceftriaxone. 2. Port placement tomorrow. 06/11/18 16:33 Subjective: Patient is resting comfortably in her hospital bed. She has no new complaints. She states she feels pretty well. Objective: Ceftriaxone # 5 Vital Signs Temp Pulse Resp BP Pulse Ox 36.6 C 74 16 114/62 95 06/11/18 15:40 06/11/18 15:40 06/11/18 15:40 06/11/18 15:40 06/11/18 15:40 Microbiology 06/09/18 19:30 Gram Stain - Final Chest - Swab Laboratory Results 06/10/18 03:43 06/10/18 03:43 06/10/18 06/11/18 06/12/18 05:59 05:59 05:59 Intake Total 500 1280 Output Total 1900 Balance -1400 1280 - Physical Exam General Appearance: WD/WN, alert, no apparent distress, non-toxic Respiratory: lungs clear, normal breath sounds, No respiratory distress Cardiac/Chest: regular rate, rhythm, No tachycardia Skin: normal color, warm/dry, No rash Neuro/Psych: alert, normal mood/affect, oriented x 3 ICD10 Worksheet Patient Problems: Problems Problem Status Onset Chemotherapy-induced thrombocytopenia Acute Hyponatremia Acute Leukopenia Acute Pancreatic cancer Acute Thrombocytopenia Acute Abdominal pain Acute Abnormal EKG Acute Abnormal LFTs Acute Fatigue Acute Vomiting Acute
[2018-06-11] MEDS: INSULIN GLARGINE 100 UNITS/ML UNIT SC SCH (20:43)
[2018-06-12] MEDS: THYROID 60 MG TAB PO SCH (05:34)
--- NOTE | 2018-06-12 08:03 | HOSPPROG ---
Hospitalist Progress Note Assessment/Plan: #Strep C bacteremia: no vegetations on echo -CTX for 2 weeks, port to be placed today #Pancreatic cancer: s/p whipple 2016. Received 2nd round chemo 06/06 #Hypotension: resolved #Hypovolemic hyponatremia: from dehydration #DM: levimer #Hypothyroidism: LT4 #HLD #Pancytopenia: no transfusion required Subjective: feeling better Objective: Vital Signs Temp Pulse Resp BP Pulse Ox 36.6 C 64 16 130/65 H 97 06/12/18 04:00 06/12/18 04:00 06/12/18 04:00 06/12/18 04:00 06/12/18 04:00 Microbiology 06/09/18 19:30 Gram Stain - Final Chest - Swab Laboratory Results 06/10/18 03:43 06/10/18 03:43 06/11/18 06/12/18 06/13/18 05:59 05:59 05:59 Intake Total 1280 300 Balance 1280 300 - Physical Exam Constitutional: no apparent distress Eyes: PERRL Ears, Nose, Mouth, Throat: moist mucous membranes Cardiovascular: regular rate and rhythym Respiratory: no respiratory distress Gastrointestinal: normoactive bowel sounds Skin: warm Musculoskeletal: other (RU chest port in place) Psychiatric: interacting appropriately ICD10 Worksheet Patient Problems: Problems Problem Status Onset Abdominal pain Acute Abnormal EKG Acute Abnormal LFTs Acute Chemotherapy-induced thrombocytopenia Acute Fatigue Acute Hyponatremia Acute Leukopenia Acute Pancreatic cancer Acute Thrombocytopenia Acute Vomiting Acute
[2018-06-12] MEDS ORDERED: INSULIN GLARGINE 100 UNITS/ML UNIT SC SCH ×3 (08:05→20:19)
[2018-06-12] MEDS ORDERED: D50W 25 GM/50 ML SYR IVP PRN (08:55)
[2018-06-12] MEDS: PRAVASTATIN SODIUM 20 MG TAB PO SCH (09:09)
[2018-06-12] MEDS: DEXAMETHASONE 4 MG TAB PO SCH ×2 (09:09→21:07)
[2018-06-12] MEDS: LIPASE 24,000/AMYLASE/PROTEASE (CREON) 1 CAP PO SCH ×3 (09:10→18:09)
[2018-06-12] MEDS: CHOLECALCIFEROL VIT D3 1,000 UNITS TAB PO SCH (09:10)
[2018-06-12] MEDS: INSULIN LISPRO 100 UNIT/1 ML VIAL HIGH SC SCH ×3 (09:35→18:09)
[2018-06-12] MEDS: INSULIN LISPRO 100 UNIT/ML SC SCH (09:48)
[2018-06-12] MEDS ORDERED: INSULIN REGULAR HUMAN 100 UNIT/ML UNIT SC SCH (11:30)
--- NOTE | 2018-06-12 13:01 | SOAPPROG ---
SOAP Progress Note Assessment/Plan: Assessment: This is a very pleasant 78-year-old female with history of metastatic pancreatic carcinoma who was admitted for sepsis. 1. Strep line sepsis: Her port was removed from the left side of her chest last week. She is scheduled to get a new one later today. She is currently receiving antibiotics per Infectious Disease. 2. Metastatic pancreatic cancer: She is receiving gemcitabine Abraxane. She will have this on hold until her infectious issues are resolved. 3. Neutropenia/thrombocytopenia: This is secondary to chemotherapy. No intervention needed. 06/12/18 13:00 Subjective: Doing well today. She is scheduled to get a port later on today. No acute events overnight. Objective: Vital Signs Temp Pulse Resp BP Pulse Ox 36.6 C 62 16 117/60 95 06/12/18 11:48 06/12/18 11:48 06/12/18 11:48 06/12/18 11:48 06/12/18 11:48 Microbiology 06/09/18 19:30 Gram Stain - Final Chest - Swab Laboratory Results 06/10/18 03:43 06/12/18 08:57 06/11/18 06/12/18 06/13/18 05:59 05:59 05:59 Intake Total 1280 300 Balance 1280 300 General: Pleasant conversant no acute distress Pulmonary: Clear to auscultation bilaterally Cardiovascular: Regular rhythm no murmurs gallops rubs Abdomen: Soft nontender nondistended bowel sounds are present Extremities: No cyanosis clubbing or edema Chest: Left Wdbnxl-X-Nduh site bandaged Neuro: Moving all extremities ICD10 Worksheet Patient Problems: Problems Problem Status Onset Chemotherapy-induced thrombocytopenia Acute Hyponatremia Acute Leukopenia Acute Pancreatic cancer Acute Thrombocytopenia Acute Abdominal pain Acute Abnormal EKG Acute Abnormal LFTs Acute Fatigue Acute Vomiting Acute
[2018-06-12] MEDS ORDERED: BUPIVACAINE 0.5% 30 ML SDV ONE (13:30)
[2018-06-12] MEDS ORDERED: LR 1,000 ML IV ONE (14:08)
[2018-06-12] MEDS ORDERED: fentaNYL 100 MCG/2 ML INJ IVP PRN (14:45)
[2018-06-12] MEDS ORDERED: NALOXONE HCL 0.4 MG/ML INJ IVP PRN (14:45)
[2018-06-12] MEDS ORDERED: ALBUTEROL 3 ML DEYVIAL IH PRN (14:45)
[2018-06-12] MEDS ORDERED: ONDANSETRON 4 MG/2 ML VIAL IVP PRN (14:45)
--- NOTE | 2018-06-12 14:45 | PDANEPAE ---
ANE Past Medical History - Cardiovascular History Hx Hypertension: No Hx Arrhythmias: No Hx Chest Pain: No Hx Coronary Artery / Peripheral Vascular Disease: No Hx CHF / Valvular Disease: No Hx Palpitations: No Cardiovascular History Comment: POSSIBLE MURMUR - Pulmonary History Hx COPD: No Hx Asthma/Reactive Airway Disease: No Hx Recent Upper Respiratory Infection: No Hx Oxygen in Use at Home: No Hx Sleep Apnea: No Sleep Apnea Screening Result - Last Documented: Negative Pulmonary History Comment: deviated septum, has trouble breathing at night - Neurologic History Hx Cerebrovascular Accident: No Hx Seizures: No Hx Dementia: No - Endocrine History Hx Diabetes: Yes Endocrine History Comment: dm- insulin. hypothyroidism - Renal History Hx Renal Disorders: No - Liver History Hx Hepatic Disorders: No Hepatic History Comment: GETTING A LIVER BIOPSY - Neurological & Psychiatric Hx Hx Neurological and Psychiatric Disorders: No - Cancer History Hx Cancer: Yes Cancer History Comment: pancreatic ca currently. last iv chemo 10/19/16 currently on oral chemo - Congenital Disorder History Hx Congenital Disorders: No - GI History Hx Gastrointestinal Disorders: Yes Gastrointestinal History Comment: IBS - Other Health History Other Health History: wears reading glasses - Chronic Pain History Chronic Pain: No - Surgical History Prior Surgeries: 09/02/16 pancreatic surgery at [facility] 08/23/16 EUS/ EGD with [facility]. 07/27/16 EUS/ERCP with [facility]. CHELA 1993. Bilateral Cataract DANNA Review of Systems Review of Systems: ANE Patient History - Allergies Allergies/Adverse Reactions: No Known Allergies Allergy (Verified 06/07/18 21:19) - Home Medications Home Medications: Insulin Aspart [Novolog Flexpen] 0 unit SQ TIDMEAL 10/24/16 [Last Taken 06/07/18 ] Herbals/Supplements -Info Only 1 ea PO DAILY 12/15/17 [Last Taken 05/14/18] Insulin Detemir [Levemir Flextouch] 11 units SQ HS 12/15/17 [Last Taken 06/06/18 ] Lipase 24,000/Amylase/Protease [Creon 24 (*)] 1 cap PO TIDMEAL 12/15/17 [Last Taken 06/07/18] Multivitamins [Multivitamin (*)] 1 each PO DAILY 12/15/17 [Last Taken 06/07/18] SIMVASTATIN 10 mg PO HS 12/15/17 [Last Taken 06/06/18] Spironolactone [Aldactone] 50 mg PO BID 12/15/17 [Last Taken 06/07/18] Thyroid [[place] Thyroid 60 MG (*)] 90 mg PO DAILY@06 12/15/17 [Last Taken ] Acetaminophen [Tylenol ES 500 mg (*)] 1,000 mg PO TID PRN 06/07/18 [Last Taken 06/07/18] Cholecalciferol Vit D3 [Vitamin D3 (*)] 4,000 units PO DAILY 06/07/18 [Last Taken 06/07/18] Dexamethasone [Decadron 4 MG (*)] 10 mg PO BID 06/07/18 [Last Taken 06/07/18] - NPO status NPO Since - Liquids (Date): 06/12/18 NPO Since - Liquids (Time): 12:52 NPO Since - Solids (Date): 06/12/18 NPO Since - Solids (Time): 00:00 - Smoking Hx Smoking Status: Never smoked - Alcohol Use Alcohol Use: None - Family Anes Hx Family Hx Anesthesia Complications: none ANE Labs/Vital Signs - Labs Result Diagrams: 06/10/18 03:43 06/12/18 08:57 - Vital Signs Blood Pressure: 108/60 Heart Rate: 73 Respiratory Rate: 16 O2 Sat (%): 97 Height: 160.02 cm Weight: 53.7 kg ANE Physical Exam - Airway Neck exam: decreased ROM Mallampati Score: Class 3 Mouth exam: normal dental/mouth exam - Pulmonary Pulmonary: no respiratory distress - Cardiovascular Cardiovascular: regular rate and rhythym - ASA Status ASA Status: III ANE Anesthesia Plan Total IV Anesthesia: Yes
[2018-06-12] MEDS ORDERED: fentaNYL 100 MCG/2 ML INJ ONE (14:46)
[2018-06-12] MEDS ORDERED: PROPOFOL/EMULSION 500 MG/50 ML BOTTLE IV ONE (14:47)
[2018-06-12] MEDS ORDERED: BACITRACIN ZINC 14.2 GM OINTTUBE TP ONE (15:41)
--- NOTE | 2018-06-12 15:55 | POSTANESTH ---
Post Anesthetic Evaluation Cardiovascular Status: Similar to Pre-Op Cond Respiratory Status: Similar to Pre-op Cond. Level of Consciousness/Mental Status: Alert and Oriented Pain Control: Adequate, Prn Tx Ordered Nausea/Vomiting Control: Adequate, Prn Tx Ordered Complications Possibly Related to Anesthesia: None Noted
--- NOTE | 2018-06-12 16:45 | PDIAF ---
- Diagnosis Diagnosis: Streptococcal bacteremia - Medication Management Discharge Medications: Medications to Continue on Transfer Insulin Aspart [Novolog Flexpen] 0 unit SQ TIDMEAL 10/24/16 [Last Taken 06/07/18 ] Herbals/Supplements -Info Only 1 ea PO DAILY 12/15/17 [Last Taken 05/14/18] Insulin Detemir [Levemir Flextouch] 11 units SQ HS 12/15/17 [Last Taken 06/06/18 ] Lipase 24,000/Amylase/Protease [Creon 24 (*)] 1 cap PO TIDMEAL 12/15/17 [Last Taken 06/07/18] Multivitamins [Multivitamin (*)] 1 each PO DAILY 12/15/17 [Last Taken 06/07/18] SIMVASTATIN 10 mg PO HS 12/15/17 [Last Taken 06/06/18] Spironolactone [Aldactone] 50 mg PO BID 12/15/17 [Last Taken 06/07/18] Thyroid [[place] Thyroid 60 MG (*)] 90 mg PO DAILY@12/15/17 [Last Taken ] Acetaminophen [Tylenol ES 500 mg (*)] 1,000 mg PO TID PRN 06/07/18 [Last Taken 06/07/18] Cholecalciferol Vit D3 [Vitamin D3 (*)] 4,000 units PO DAILY 06/07/18 [Last Taken 06/07/18] Dexamethasone [Decadron 4 MG (*)] 10 mg PO BID 06/07/18 [Last Taken 06/07/18] Shelter Antibiotics: Ceftriaxone 2 g IV Q 24 hr Shelter Antibiotic Stop Date: 06/23/18 Discharge Medications: Refer to the Discharge Home Medication list for PRN reason. PICC Care - Routine: N/A (Routine port care) - Orders Services needed: Home [facility]cf Care Face to Face: I certify that this patient was under my care and that I had the required [id number] encounter meeting the encounter requirements on the discharge day. My findings support the fact that the patient is homebound as defined in Home Care Face to Face Continued: CMS Chapter 7 Medicare Benefits Manual 30.1.1 , The condition of the patient is such that there exists a normal inability to leave home and consequently, leaving home would require a considerable and taxing effort. - Labs/Radiology CBC w/diff Date: 06/14/18 CMP Date: 06/14/18 Call or Fax Lab and Imaging Results to: Dr. White, - Follow Up Care Current Providers and Referrals: Amy You MD [Primary Care Provider] - Eugene White MD [Medical Doctor] - 06/21/18 9:30 am
[2018-06-13] MEDS: THYROID 60 MG TAB PO SCH (06:05)
--- NOTE | 2018-06-13 07:22 | POSTOPPROG ---
Post Op Note Date of Operation: 06/13/18 Surgeon: Brad Walsh Anesthesiologist: Hemant Moody Anesthesia: GET(General Endotracheal) Pre-op Diagnosis: pancreatic CA Post-op Diagnosis: same Procedure: power port placement with flouroscopy Findings: good position and flow Inf/Abcess present in the surg proc area at time of surgery?: No EBL: Minimal Complications: none
[2018-06-13 08:05] VITALS: BP 118/72
--- NOTE | 2018-06-13 08:30 | SOAPPROG ---
SOAP Progress Note Assessment/Plan: Assessment/Plan: 78 Y F c pancreatic CA on chemo now s/p port removal for infection. New port site c/d/i. May access whenever needed. May remove outer dressings. Leave steri strips. D/w'ed patient. 06/13/18 08:29 Objective: Vital Signs Temp Pulse Resp BP Pulse Ox 36.6 C 68 16 118/72 95 06/13/18 07:58 06/13/18 07:58 06/13/18 07:58 06/13/18 07:58 06/13/18 07:58 Microbiology 06/09/18 19:30 Gram Stain - Final Chest - Swab Wound Culture - Final Laboratory Results 06/10/18 03:43 06/12/18 08:57 06/12/18 06/13/18 06/14/18 05:59 05:59 05:59 Intake Total 300 850 Balance 300 850 ICD10 Worksheet Patient Problems: Problems Problem Status Onset Chemotherapy-induced thrombocytopenia Acute Hyponatremia Acute Leukopenia Acute Pancreatic cancer Acute Thrombocytopenia Acute Abdominal pain Acute Abnormal EKG Acute Abnormal LFTs Acute Fatigue Acute Vomiting Acute
[2018-06-13] MEDS: LIPASE 24,000/AMYLASE/PROTEASE (CREON) 1 CAP PO SCH (08:43)
[2018-06-13] MEDS: CHOLECALCIFEROL VIT D3 1,000 UNITS TAB PO SCH (08:43)
[2018-06-13] MEDS: DEXAMETHASONE 4 MG TAB PO SCH (08:43)
[2018-06-13] MEDS: PRAVASTATIN SODIUM 20 MG TAB PO SCH (08:44)
[2018-06-13] MEDS: INSULIN LISPRO 100 UNIT/1 ML VIAL HIGH SC SCH (08:45)
--- NOTE | 2018-06-13 09:00 | PCMIDPN ---
Assessment/Plan: Assessment/Plan: * Group C/G streptococcal bacteremia: Clinically improved. Repeat blood culture show clearing of bacteremia. Port removed and new port placed yesterday in event port was contributing to bacteremia. Transthoracic echocardiogram without evidence of endocarditis. Plan 2 weeks of ceftriaxone post clearance of blood cultures with stop date of 06/23/2018. Weekly CBC and CMP on therapy. Side effects of ceftriaxone including allergic reactions, skin rash, drug fever, and potential for changes in blood count/liver tests/kidney test discussed with patient today. Follow-up in my office on 06/21/2018 as outlined in discharge plan. 06/13/18 08:58 Subjective: Patient had new port placed yesterday afternoon. Otherwise without complaints. Objective: Vital Signs Temp Pulse Resp BP Pulse Ox 36.6 C 68 16 118/72 95 06/13/18 07:58 06/13/18 07:58 06/13/18 07:58 06/13/18 07:58 06/13/18 07:58 Microbiology 06/09/18 19:30 Gram Stain - Final Chest - Swab Wound Culture - Final Laboratory Results 06/10/18 03:43 06/12/18 08:57 06/12/18 06/13/18 06/14/18 05:59 05:59 05:59 Intake Total 300 850 Balance 300 850 Ceftriaxone # 7 Blood cultures 06/09/2018 no growth - Physical Exam General Appearance: alert, no apparent distress EENT: No scleral icterus, No thrush, No conjunctival petechiae Respiratory: lungs clear, No respiratory distress Cardiac/Chest: regular rate, rhythm Abdomen: non-tender, No distended ICD10 Worksheet Patient Problems: Problems Problem Status Onset Fatigue Acute Abnormal LFTs Acute Abnormal EKG Acute Vomiting Acute Abdominal pain Acute Hyponatremia Acute Thrombocytopenia Acute Pancreatic cancer Acute Chemotherapy-induced thrombocytopenia Acute Leukopenia Acute
--- NOTE | 2018-06-13 09:50 | PDIAF ---
- Diagnosis Diagnosis: Streptococcal bacteremia - Medication Management Discharge Medications: Medications to Continue on Transfer Insulin Aspart [Novolog Flexpen] 0 unit SQ TIDMEAL 10/24/16 [Last Taken 06/07/18 ] Herbals/Supplements -Info Only 1 ea PO DAILY 12/15/17 [Last Taken 05/14/18] Insulin Detemir [Levemir Flextouch] 11 units SQ HS 12/15/17 [Last Taken 06/06/18 ] Lipase 24,000/Amylase/Protease [Creon 24 (*)] 1 cap PO TIDMEAL 12/15/17 [Last Taken 06/07/18] Multivitamins [Multivitamin (*)] 1 each PO DAILY 12/15/17 [Last Taken 06/07/18] SIMVASTATIN 10 mg PO HS 12/15/17 [Last Taken 06/06/18] Spironolactone [Aldactone] 50 mg PO BID 12/15/17 [Last Taken 06/07/18] Thyroid [[place] Thyroid 60 MG (*)] 90 mg PO DAILY@06 12/15/17 [Last Taken ] Acetaminophen [Tylenol ES 500 mg (*)] 1,000 mg PO TID PRN 06/07/18 [Last Taken 06/07/18] Cholecalciferol Vit D3 [Vitamin D3 (*)] 4,000 units PO DAILY 06/07/18 [Last Taken 06/07/18] Dexamethasone [Decadron 4 MG (*)] 6 mg PO BID #15 tab 06/12/18 [Last Taken Unknown] cefTRIAXone [Rocephin] 2 gm IV DAILY vial 06/12/18 [Last Taken Unknown] Compliance And Control Analyst Antibiotics: Ceftriaxone 2 g IV Q 24 hr Compliance And Control Analyst Antibiotic Stop Date: 06/23/18 Discharge Medications: Refer to the Discharge Home Medication list for PRN reason. PICC Care - Routine: N/A (Routine port care) - Orders Services needed: Home Half-Way Care Face to Face: I certify that this patient was under my care and that I had the required [id number] encounter meeting the encounter requirements on the discharge day. My findings support the fact that the patient is homebound as defined in Home Care Face to Face Continued: CMS Chapter 7 Medicare Benefits Manual 30.1.1 , The condition of the patient is such that there exists a normal inability to leave home and consequently, leaving home would require a considerable and taxing effort. Diet Recommendation: ADA 2000 consistent carb Additional Instructions: If glucose levels >250 consistently throughout day, then increase short-acting insulin to 10 units with meals. If morning sugar greater 250 can increase Levimer to 15units. Sugars should improve as steroids tapered off. - Labs/Radiology CBC w/diff Date: 06/14/18 CMP Date: 06/14/18 Call or Fax Lab and Imaging Results to: Dr. White, - Follow Up Care Current Providers and Referrals: Brad Walsh MD [Medical Doctor] - follow up in 2 weeks Eugene White MD [Medical Doctor] - 06/21/18 9:30 am Amy You MD [Primary Care Provider] -
--- NOTE | 2018-06-13 10:02 | ASMTCMCOM ---
CM Note CM Note Notes: Patient has been medically cleared for dc to home with [facility] and resumption of [facility] services. Per MD they would like an outpatient referral for palliative care at this point. Transfer summaries/orders sent. CM available should other needs arise. Will place referral in allscripts to palliative care. Plan: Home with HHC, Home infusion via [facility] and palliative care. Date Signed: 06/13/2018 10:01 AM Electronically Signed By:Nat Benjamin RN
--- NOTE | 2018-06-13 13:53 | GDS ---
DISCHARGE DIAGNOSES: 1. Group C bacteremia. 2. Metastatic pancreatic cancer. 3. Neutropenia/thrombocytopenia. 4. Hypotension. 5. Hypovolemic hyponatremia. 6. Diabetes with hyperglycemia. 7. Hypothyroidism. 8. Hyperlipidemia. 9. Pancytopenia. HISTORY OF PRESENT ILLNESS: A 78-year-old female with metastatic pancreatic cancer, hypothyroidism, was recently started on chemotherapy with recurrence, who presented with fevers, weakness. Status po st 2nd round of chemotherapy 06/06/2018 with gemcitabine and Abraxane. She felt very weak and had a fever of 101. She denied chest pain, cough, or abdominal pain. HOSPITAL COURSE BY PROBLEM: 1. Strep C/G bacteremia: No clearly defined focus but consider oropharyngeal or gastrointestinal. Her port was removed and replaced and has been treated with ceftriaxone. This will continue through 06/23/2018 with weekly labs and followup with Dr. White on 06/21/2018 at 9:30. 2. Metastatic pancreatic cancer: She is receiving gemcitabine and Abraxane. This is on hold until infectious process is treated. I did speak at length to both she and her about palliative ca re and are agreeable for followup as an outpatient. 3. Neutropenia/thrombocytopenia: Chemo-related. No intervention needed. 4. Hypotension: This resolved with IV fluids. 5. Hypovolemic hyponatremia: From dehydration. Resolved. 6. Diabetes with hyperglycemia: Secondary to steroids. Advised to resume her home scheduled slidin g scale insulin and to increase to 10 if sugars remain elevated. 7. Hypothyroidism: Synthroid. 8. Hyperlipidemia: Statin. 9. Recent allergic reaction: She was started on dexamethasone per Oncology after chemotherapy. Rodney l taper this over the next few days since has not been on greater than 2 weeks. Can do this rapidly and this will also help her sugars. DISPOSITION: She is stable for discharge home with her . NEW MEDICATIONS: Dexamethasone taper. FOLLOWUP: Oncology. PHYSICAL EXAM: VITAL SIGNS: Today, temperature 36.6, blood pressure 118/72, heart rate is in the 60 s, respirations 16, 95% on room air. GENERAL: She is smiling, well-appearing, in no acute distress. HEENT: PERRLA. Moist mucous membranes. CV: Regular rate and rhythm. LUNGS: Clear. ABDOMEN: Soft, nontender, nondistended. Positive bowel sounds. : No [place]. MUSCULOSKELETAL: Left port i n place without hematoma or swelling. NEURO: 2-12 intact. PSYCH: Alert and oriented x3. TIME SPENT ON DISCHARGE: Greater than 30 minutes, coordinating discharge and discussing palliative c are with patient. /[id number]/MODL
--- NOTE | 2018-06-14 08:41 | ASDISCHSUM ---
Discharge Information Plan Status:IV ABX/Infusion Medically Cleared to Leave:06/14/2018 Discharge Date:06/13/2018 12:21 PM D/C Disposition:Home Health Service ADT D/C Disposition:Home Health Service Projected Discharge Date:06/14/2018 11:00 AM Transportation at D/C:Family Discharge Delay Reason: Follow-Up Date:06/14/2018 11:00 AM Discharge Slot: Final Diagnosis: Placement Information Referral Type:Home Infusion Referral ID:[id number] Provider Name:[facility] Address 1:[address] Address 2: City:[place] Selection Factors: State:[place] Referral Type:*Home Health Care Services Referral ID:[id number] Provider Name:[facility] Address [address] Address 2: City:[place] Selection Factors: State:[place] Referral Type:Palliative Care Referral ID:[id number] Provider Name:Cy Mcknight ([facility]) Address 1:[address] [place] [address] Address 2:[address] City:[place] Selection Factors: State:[place] Patient Contact Information Contact Name:JEANIE Relationship: Address:[address] [place] [address] City:[place] Alternate Phone: State/Zip Code:[place] [address] Email: Financial Information Financial Class:Medicare Advantage Plans Primary Plan Desc:BRODIE AARON MEDICARE Primary Plan Number:[id number] Secondary Plan Desc: Secondary Plan Number: Assessment Information [facility] CM Progress Note CM Note CM Note Notes: CM reviewed chart and participated in rounds for d/c planning. Pt is a 77 y/o female, diagnosed with pancreatic cancer, who presented at the ED with c/o fatigue, fever and weakness. She is positive for a strain of strep. PT completed their eval and d/c PT with a recommendation for home. Pt is current with [facility] for RN and this will be continued upon d/c. she will most likely be needing IV anti-biotics when d/c'ed. A referral was made to [facility]. CM to follow. D/C Plan: Home with [facility] RN and [facility]. Date Signed: 06/08/2018 01:39 PM Electronically Signed By:Martine Baptiste [facility] CM Progress Note CM Note CM Note Notes: [facility] has accepted Pt. They would like to be told which medicine infectious disease will be prescribing as soon as that is known. Pt will have a co-pay, the amount depending on the medication. D/C Plan: Home with [facility] and [facility]. Date Signed: 06/08/2018 01:54 PM Electronically Signed By:Martine Baptiste [facility] CM Progress Note CM Note CM Note Notes: 06/10/2018 Case Management Note Discussed with RN. Pt port removed yesterday. Cultures pending. Anticipating d/c on IV antibiotics, will need PICC or port placed prior to d/c. Faxed updates to [facility] home care. Anticipating d/c early in the week. Case Management d/c poc: resume [facility] services with [facility] providing IV antibiotics. Case Management will follow. Date Signed: 06/10/2018 02:45 PM Electronically Signed By:Violet Rivas RN [facility] CM Progress Note CM Note CM Note Notes: Patient has been medically cleared for dc to home with [facility] and resumption of [facility] services. Per MD they would like an outpatient referral for palliative care at this point. Transfer summaries/orders sent. CM available should other needs arise. Will place referral in allscripts to palliative care. Plan: Home with HHC, Home infusion via [facility] and palliative care. Date Signed: 06/13/2018 10:01 AM Electronically Signed By:Nat Benjamin RN Intervention Information Intervention Type:*Incorrect Registration Date of Service:06/08/2018 06:33 AM Patient Type:Inpatient Staff Member:BRUNO Gambino, Debbie Hours: Discipline: Severity: Comment: Intervention Type:*IM-Signed Date of Service:06/13/2018 10:50 AM Patient Type:Inpatient Staff Member:Sarah Portillo Hours: Discipline: Severity: Comment:
[2018-06-15] MEDS ORDERED: DEXAMETHASONE 4 MG TAB PO SCH (09:00)
--- NOTE | 2018-06-17 07:51 | GOP ---
DATE OF OPERATION: SURGEON: Brad Walsh MD PREOPERATIVE DIAGNOSIS: Pancreatic cancer. POSTOPERATIVE DIAGNOSIS: Pancreatic cancer. PROCEDURE PERFORMED: Right subclavian port placement with fluoroscopic guidance. FINDINGS: The patient was found to have good position and flow. DESCRIPTION OF PROCEDURE: The patient was taken to the operating room where she received a satisfact ory general laryngeal mask anesthesia. She was placed in supine position, prepped and draped in the usual sterile fashion. Using 0.5% Marcaine local infiltration, a single stick was made in the right subclavian vein. Guidewire was introduced. The dilator was passed over the guidewire. A subcu pock et was made in the 2nd intercostal space. Port tubing was passed from that pocket to the subclavian insertion site, trimmed to the appropriate length using fluoroscopic guidance. introduced through the introducer sheath and dilator system into the right atrium. Good backflow was achieved. The catheter was flushed with heparin and saline. The port was secured to the fascia with 3-0 Vicr yl. The pocket was closed with 3-0 Vicryl for subcu and 4-0 Prolene subcuticular stitch for the skin and Prolene mattress suture for the entrance site. Wounds were dressed. She tolerated the procedur e well and was taken to the recovery room in good condition. There were no complications. Copy requested to: /[id number]/MODL
[2018-06-18] MEDS ORDERED: DEXAMETHASONE 1.5 MG TAB PO SCH (09:00)
== END 2018-06-13 12:21 | disposition home health service (06) | DRG 315 ==
LOC: EDUNIT# → OBSVTOIN 21:17 → F1N 22:10
PROVIDERS: ADMIT Hospitalist; ATTEND Hospitalist
PROC: 0JPT3XZ Removal of Tunneled Vascular Access Device from Trunk Subcutaneous Tissue and Fascia, Percutaneous Approach (ICD-10-PCS; 2018-06-10)
PROC: 0JH60XZ Insertion of Tunneled Vascular Access Device into Chest Subcutaneous Tissue and Fascia, Open Approach (ICD-10-PCS; principal; 2018-06-12 15:30)
DX: T82.7XXA Infection and inflammatory reaction due to other cardiac and vascular devices, implants and grafts, initial encounter (principal); R78.81 Bacteremia; B95.4 Other streptococcus as the cause of diseases classified elsewhere; E11.65 Type 2 diabetes mellitus with hyperglycemia; E87.1 Hypo-osmolality and hyponatremia; D70.1 Agranulocytosis secondary to cancer chemotherapy; T45.1X5A Adverse effect of antineoplastic and immunosuppressive drugs, initial encounter; D69.59 Other secondary thrombocytopenia; Z85.07 Personal history of malignant neoplasm of pancreas; C77.9 Secondary and unspecified malignant neoplasm of lymph node, unspecified; E78.5 Hyperlipidemia, unspecified; E03.9 Hypothyroidism, unspecified; I10 Essential (primary) hypertension; Z79.4 Long term (current) use of insulin
CPT/HCPCS: 97161-GP; 97165-GO; C1788; J0696; J1642; J1815; J2704; J3010